=== PATIENT | female | born 1950 | race Caucasian/White ===

== ENCOUNTER 2020-06-16 11:06 | Outpatient (REF) | payer MEDICARE, SELFPAY ==
--- NOTE | 2020-06-16 11:11 | FL_ITS ---
EXAMINATION: BARIUM SWALLOW CLINICAL INFORMATION: Dysphagia. COMPARISON: None TECHNIQUE: Routine upright barium swallow was performed with thick barium, barium coated turkey and barium tablet. Thin barium was performed in prone lying position. FINDINGS: Following oral administration of thick barium, barium coated turkey there is normal propagation of bolus from the oral cavity through the pharynx, esophagus into stomach without any evidence of obstruction, narrowing or stricture. Slightly prominent varicose of splinter and a small Zenker's diverticulum is noted. On placing patient prone and oral administration of thin barium there is good distention of the entire esophagus without any intrinsic defect or extrinsic compression. There is a small hiatal hernia noted. Minimal gastroesophageal reflux. There are postsurgical changes in the epigastric region likely from hiatal hernia repair. IMPRESSION: Small hiatal hernia with mild gastroesophageal reflux. Small Zenker's diverticulum without any food residue. Fluoroscopy time: 2.4 minutes. Dose area product: 13.37. Images: 63.
== END 2020-06-16 11:07 | disposition home or self-care (01) ==
LOC: HO.XRAY 11:06
PROVIDERS: PCP Internal Medicine; Visit Provider Internal Medicine Gastroenterology
DX: R13.14 Dysphagia, pharyngoesophageal phase (principal)
CPT/HCPCS: 74220

== ENCOUNTER → 2020-06-17 11:35 | Outpatient (BNVA) | payer MEDICARE, SELFPAY | PROVIDERS: PCP Internal Medicine; Referring Provider Internal Medicine; Visit Provider Dietitian, Registered | DX: Z76.89 Persons encountering health services in other specified circumstances (principal) ==

== ENCOUNTER → 2020-09-17 11:20 | Outpatient (BNVA) | payer MEDICARE, SELFPAY | PROVIDERS: PCP Internal Medicine; Visit Provider Dietitian, Registered ==

== ENCOUNTER 2021-10-21 14:08 | Outpatient (REF) | payer MEDICARE, SELFPAY ==
[2021-10-21 15:27] LABS: MANUAL DIFF FLAG NO
[2021-10-21 16:04] LABS: Basophils Percent Auto 0.5 % (0-2); Eosinophils Absolute Auto 0.5 X10*3/uL (0.0-0.4); Eosinophils Percent Auto 5.4 % (0-4); Hematocrit 43.5 % (37.0-47.0); Hemoglobin 13.6 g/dl (12.0-16.0); Imm Gran Abs Auto 0.01 X10*3/uL (0.00-0.03); Imm Gran Pct Auto 0.1 % (0.0-0.4); Lymphocytes Absolute Auto 2.3 X10*3/uL (1.2-4.9); Lymphocytes Percent Auto 27.6 % (20-40); Mean Corpuscular HGB Conc 31.3 g/dl (31.0-35.0); Mean Corpuscular Volume 86.3 fL (80.0-98.0); Mean Platelet Volume 11.8 fL (9.4-12.3); Monocytes Absolute Auto 0.7 X10*3/uL (0.1-1.2); Monocytes Percent Auto 8.3 % (2-11); Neutrophils Absolute Auto 4.8 x10*3/uL (2.0-8.3); Neutrophils Percent Auto 58.1 % (45-73); Platelet Count 257 X10*3/uL (160-400); Red Blood Count 5.04 X10*6/uL (4.20-5.50); Red Cell Distribution Width 13.4 % (11.0-16.0); White Blood Count 8.3 X10*3/uL (4.8-10.8)
[2021-10-21 16:10] LABS: Prothrombin Time 11.6 SEC (9.9-13.0)
[2021-10-21 16:28] LABS: Alanine Aminotransferase 23 U/L (0-31); Albumin Level 4.5 g/dL (3.5-5.0); Alkaline Phosphatase 97 U/L (39-117); Anion Gap 13 (12-20); Aspartate Amino Transferase 20 U/L (5-31); Bilirubin Total 0.5 mg/dL (0.0-1.0); Blood Urea Nitrogen 17 mg/dL (9-16); Carbon Dioxide 25 mmol/L (22-29); Chloride 108 mmol/L (96-108); Estimated Glomerular Filt Rate > 60; Glucose Random 75 mg/dL (60-115); Lipase 40 U/L (8-78); Potassium 4.2 mmol/L (3.3-5.1); Sodium 142 mmol/L (135-145); Total Protein 7.3 g/dL (6.5-8.0)
[2021-10-22 14:18] LABS: Transglutaminase IgA <1.0 U/mL
[2021-10-22 14:25] LABS: Immunoglobulin A 198 mg/dL (70-320)
== END 2021-10-21 14:09 | disposition home or self-care (01) ==
LOC: HO.LAB 14:08
PROVIDERS: PCP Internal Medicine; Referring Provider Internal Medicine; Visit Provider Internal Medicine Gastroenterology
DX: R10.10 Upper abdominal pain, unspecified (principal); R14.0 Abdominal distension (gaseous); R13.14 Dysphagia, pharyngoesophageal phase; K21.9 Gastro-esophageal reflux disease without esophagitis; K76.0 Fatty (change of) liver, not elsewhere classified; Z80.0 Family history of malignant neoplasm of digestive organs
CPT/HCPCS: 36415; 80053; 82784; 83690; 85025; 85610; 86364; 99212

== ENCOUNTER 2021-12-29 16:10 | Outpatient (REF) | payer OTHER, SELFPAY ==
--- NOTE | ~2021-12-29 | CT_ITS ---
EXAMINATION: CT ABDOMEN AND PELVIS WITH CONTRAST CLINICAL INFORMATION: Upper abdominal pain. COMPARISON: CT abdomen and pelvis 07/24/2018. TECHNIQUE: Multidetector volumetric images were obtained from the superior aspect of the liver through the pubic symphysis following administration 85 mL of Omnipaque 350 intravenous contrast. Sagittal and coronal reformatted images were obtained on the technologist's workstation. Oral contrast: No This CT examination was performed using dose optimization techniques as appropriate, variously including the following: *Automated exposure control *Adjustment of mA and/or kV according to patient size (this includes techniques or standardized protocols for targeted exams where dose is matched to indication/reason for exam; i.e. extremities or head) *Use of iterative reconstruction technique DLP: 694 mGy-cm FINDINGS: LUNG BASES: There is a 1.6 cm lesion in the right lower lobe anterobasal segment image 3/3 which has increased slightly in size. Previously it measured 9 mm on axial image 1/6. There is a 2.2 cm pleural-based solid lesion right lower lobe on axial image 1/3. Previously it appeared more atelectatic change. The heart size is normal. LIVER, GALLBLADDER, AND BILIARY TREE: The liver is normal in size, shape, and attenuation. No focal hepatic lesion or biliary ductal dilatation is present. The gallbladder is unremarkable with no evidence of radiopaque gallstones, gallbladder wall thickening, or obvious pericholecystic inflammatory changes. PANCREAS: Unremarkable. SPLEEN: Unremarkable. ADRENAL GLANDS: Unremarkable. KIDNEYS AND URETERS: The kidneys are normal in size, shape, and attenuation. No hydronephrosis, hydroureter, or calculi seen. No perinephric stranding. There is a 2.9 cm cyst in lower pole right kidney. There are bilateral extrarenal kidney pelvises. BLADDER: Unremarkable. GASTROINTESTINAL TRACT: There is a small hiatal hernia with postsurgical changes from previous intervention. The stomach is otherwise unremarkable. The small-bowel loops are normal caliber. There is scattered stool and gas seen throughout the colon without distention. Appendix is not seen. There is diffuse colonic diverticulosis most prominent in the sigmoid colon. There is no pericolic fat stranding. ABDOMINAL WALL: No significant hernia is appreciated. LYMPH NODES: Normal. VASCULAR: Unremarkable. PELVIC VISCERA: The uterus is retroverted and appears unremarkable. OSSEOUS STRUCTURES: There is mild ventral spondylosis lower dorsal spine. No lytic process. CT/CT abdomen pelvis w con IMPRESSION: Sigmoid and rest of the colon diverticulosis without diverticulitis. Mild constipation without obstruction. Right renal midpole simple cyst. No major change compared to previous CT abdomen exam 07/23/2018. Fleischner guidelines were followed.
[2021-12-29 16:54] LABS: Blood Urea Nitrogen 24 mg/dL (9-16); Estimated Glomerular Filt Rate 48
[2021-12-29] MEDS: iohexoL 350 MG/ML 100 ML INFUS..BTL IV (19:17)
== END 2021-12-29 16:11 | disposition home or self-care (01) ==
LOC: HO.CT 16:10
PROVIDERS: Radiology Diagnostic Radiology; PCP Internal Medicine; Visit Provider Internal Medicine Gastroenterology
DX: Z01.812 Encounter for preprocedural laboratory examination (principal); R10.10 Upper abdominal pain, unspecified
CPT/HCPCS: 36415; 74177; 82565; 84520; Q9967

== ENCOUNTER → 2022-08-10 11:34 | Outpatient (BNVA) | payer OTHER, SELFPAY | PROVIDERS: PCP Internal Medicine; Referring Provider Internal Medicine; Visit Provider Internal Medicine Gastroenterology | DX: R10.10 Upper abdominal pain, unspecified (principal); R14.0 Abdominal distension (gaseous); R15.9 Full incontinence of feces; R13.14 Dysphagia, pharyngoesophageal phase; K76.0 Fatty (change of) liver, not elsewhere classified; K21.9 Gastro-esophageal reflux disease without esophagitis; K74.60 Unspecified cirrhosis of liver; K59.09 Other constipation; Z86.010 Personal history of colon polyps | CPT/HCPCS: 99212 ==

== ENCOUNTER 2023-05-24 11:32 | Outpatient (AMB) | payer OTHER, SELFPAY ==
--- NOTE | 2023-05-24 11:38 | MHC.OFFVIS ---
Vital Signs 05/24/23 11:50 Height 5 ft 3 in Weight 153 lb BMI 27.1 BP 139/66 Blood Pressure Location Lt brachial Position Sitting Pulse 84 Intake Visit Reasons: 6 month fu Intake Note: Patient follow up for abdominal bloating. Patient cc: abdominal discomfort, medication is helping with GERD, and constipation on and off. Flatbed Press Operator Required: Yes Flatbed Press Operator Name: Stacy [facility] interpeter Accompanied by: Self / Same As Patient Allergies No Known Allergies [No Known Allergies*] Allergy (Verified 02/21/24 10:45) Medication List - Last Reconciled 05/24/23 by Luis Che MD albuterol sulfate 90 mcg/actuation 2 puffs inhalation Q6H PRN atorvastatin 40 mg PO DAILY calcium carbonate-vitamin D3 600 mg-10 mcg (400 unit) 1 tab PO BID cholecalciferol (vitamin D3) 25 mcg PO DAILY dicyclomine 20 mg PO BID 90 days levothyroxine 50 mcg PO DAILY metformin 500 mg PO DAILY omeprazole 40 mg PO DAILY HPI HPI 6 month fu: Details: GI CLINIC VISIT FOR THIS 72-YEAR-OLD GABONESE-SPEAKING FEMALE FOR FOLLOW-UP OF ABDOMINAL? BLOATING AND FECAL INCONTINENCE. Patient is being followed in GI since Jun 2018. ?CHRONIC ILLNESSES:?PMX of thyroid cancer, CKD, sarcoidosis, high? cholesterol, osteopenia, RADHIKA (non compliant CPAP), psoriasis, hypothyroid GERD,? ETOH abuse and hepatic steatosis, calcified lung mass RUL, smoker, neck and? throacic spine pain ?LABS IN [employer]:?from 2018 - reviewed. DECEMBER 2018? stool fat was normal stool for H pylori antigen was negative. ?IMAGING? STUDIES: 05/2020 BARIUM SWALLOW SHOWED: ?Small hiatal hernia with mild gastroesophageal reflux. ? Small Zenker's diverticulum without any food residue. 07/[address] scan showed (reviewed with? Radiology): ?GASTROINTESTINAL TRACT: Multiple surgical clips suggesting? prior hiatal hernia repair in the region of the gastroesophageal? junction. ?No hiatal hernia. This is the appearance of a Yoselin? fundoplication. ?The stomach is otherwise unremarkable. Small bowel is? normal in caliber. No obstruction. Colonic diverticulosis noted. No? diverticulitis. No free air or free fluid. ?ABDOMINAL WALL: No? significant hernia is appreciated. ?ENDOSCOPIC STUDIES:??12/12/17 EGD showed a normal esophagus, nodular gastritis and negative H Pylori? and normal duodenal biopsies. Same day colonoscopy showed decreased anal? sphincter tone and a 3 mm sessile tubular adenoma in the ascending colon ?TODAY'S VISIT [facility] material lister, [place] Notes upper abdominal discomfort at night. Comes suddenly and goes away fast Not associated with eating. Intermittent constipation and denies taking any medication. Pt states she has not been called to schedule colonoscopy appt PAST VISITS: Pt is accompanied by her grand daughter who helped interpret for the patient . Abdominal pain has improved. Abd CT results were reviewed with the patient. Accompanied by her daughter (helped with interpretation) and great grandson. ? ? ? Pt complains of intermittent upper abdomen and periumblical area x 1 month. ?? ? Pain is almost daily and feels like a pressure and can be 8/10 in intensity and lasts? 6-7 min and resolves spontaneously Denies any clear precipitating factors - some times she notes pain after eating, pain can wake her up at night. Pt notes nausea and denies vomiting, fever, chills or sweating. Has lost 3 lbs over the past month. Has been having heartburn - stopped after she had surgery. She has been having intermittent diarrhea for the past month - has 3 or more BMs a day. Denies ongoing fecal incontinence ?Seen by Nessa and was placed on? FODMAP diet. ?Feeling a little better. ?Stopped taking milk? products. ?Gas is less and not as bad as in the past. ?Fecal? incontinence is better and mostly related to passage of gas. ?Stopped? taking Omeprazole since it was not helping. ?Notes intermittent? dysphagia to solid food after she starts eating and has to throw up and is able? to eat after that. ?Denies noticing any weight loss ?PAST? VISITS: ?Tried Gluten Free Diet x 2 weeks (found it to be expensive)? and no change in her symptoms. ?Sucralfate caused an upset? stomach. ?Abdomen is noisey and she finds it embarassing to go? out. ?Has been loosing weight. Had hiatal hernia repair? 08/2016 at [facility] and having GI problems since the surgery ? No? heartburn since the surgery and continuing to take Omeprazole. ? Notes? increased gas and bloating. ? Has abdominal discomfort related to? gas. ? Has tried gas X and several other otc medications without relief? of symptoms. ? Wakes up at night with upper abdominal pain which lasts? for several hours. ? Pain does not make the pain go away. ? Sometimes can have a BM without warning when she is in the rest room to? urinate. ? She is unable to control the gas and avoids public? places. ? No change in appetite. Weight loss from 173 to? 153. ? Patient denies change in bowel habits, black stools or rectal? bleeding ? Denies dysphagia, heartburn, nausea or vomiting, change in? appetite or weight. ? Patient is accompanied by her daughter (who? interpreted for the patient) and 2 year old grandson. ? Denies change? in gas and bloating. ? Still has fecal incontinence when she is trying? to pass the gas. ? Mostly has one BM a day mostly in the am. ? Denies nausea or vomiting, change in appetite or weight. ? Takes? Omeprazole 40 mg 2-3 times a month prn. ? Daughter was wondering if? video or pictures from her fundoplication surgery were available for review -? she was referred to [facility] Medical records [facility] Medical History Type 2 diabetes mellitus without complications Thoracic spine pain Neck pain Hepatic steatosis History of ETOH abuse Mass of upper lobe of right lung Hiatal hernia RADHIKA (obstructive sleep apnea) CKD (chronic kidney disease) HLD (hyperlipidemia) Hypothyroidism Hepatic steatosis GERD (gastroesophageal reflux disease) Abdominal bloating Dysphagia Sarcoidosis Thyroid cancer Surgical History Hx of partial thyroidectomy History of repair of hiatal hernia Hx of colonoscopy Hx of esophagogastroduodenoscopy Social History Household Members: Family Are you a primary chronic care nurse to a significant other at home: Yes (3 year old great-grand child, daughter to help post-op) Do you presently have visiting nurse or other home services: No Alcohol intake: current Alcohol intake frequency: holidays/special occasions only Patient Tobacco Use Status: Former Tobacco user Tobacco use type: Cigarette Review of Systems Const All systems reviewed & are unremarkable except as noted in HPI and below ENT Reports Normal hearing present Neuro Reports Normal hearing present and Denies Abnormal speech present Physical Exam Vital Signs: Last Vital Signs Pulse 84 05/24/23 11:50 BP 139/66 05/24/23 11:50 BMI result Body Mass Index 27.1 Const General: healthy appearing and no acute distress Nutritional Appearance: overweight Orientation/consciousness: patient oriented x3 Limitations: language barrier HEENT Head: Yes normal to inspection Ears: hearing grossly normal bilaterally Mouth: Normal oral and palatal mucosa present Eyes Sclerae: sclerae normal Pupils: Equal, round and reactive pupils present Neck Neck: Yes normal visual inspection Chest Chest palpation & inspection: normal inspection of the chest Resp Effort & Inspection: normal respiratory effort Auscultation: clear to auscultation bilaterally Cardio Palpation: normal PMI Rate: regular rate Rhythm: regular rhythm Heart sounds: S1 normal heart sound present, S2 normal heart sound present and no murmurs GI Palpation (GI): Soft to palpation, nontender and No hepatosplenomegaly present Auscultation: normal bowel sounds Rectal Exam - Female: deferred Skin General skin exam: no rashes or lesions noted Neuro General: patient oriented x3, gait normal and moves all extremities Cranial nerves: Yes Equal, round and reactive pupils present and Yes Normal hearing present Speech: No Abnormal speech present Psych Appearance: grossly normal Mental Status: mental status grossly normal Assessment & Plan Assessment & Plan (1) History of colon polyps: Comment: 12/12/17 EGD showed a normal esophagus, nodular?gastritis and negative H Pylori and normal duodenal biopsies. Same day? colonoscopy showed decreased anal sphincter tone and a 3 mm sessile tubular? adenoma in the ascending colon. Pt is due for a 5 year FU colon in 11/2022 Code(s): Z86.010 - Personal history of colonic polyps Category: Medical (2) Family history of pancreatic cancer: Code(s): Z80.0 - Family history of malignant neoplasm of digestive organs Category: Medical (3) Upper abdominal pain: Code(s): R10.10 - Upper abdominal pain, unspecified Category: Medical (4) Hepatic steatosis: Comment: 2017 normal LFTs Code(s): K76.0 - Fatty (change of) liver, not elsewhere classified Category: Medical (5) GERD (gastroesophageal reflux disease): Code(s): K21.9 - Gastro-esophageal reflux disease without esophagitis Category: Medical (6) Cirrhosis: Code(s): K74.60 - Unspecified cirrhosis of liver Category: Medical (7) Fecal incontinence: Code(s): R15.9 - Full incontinence of feces Category: Medical (8) Abdominal bloating: Code(s): R14.0 - Abdominal distension (gaseous) Category: Medical (9) Dysphagia, pharyngoesophageal phase: Comment: Likely due to esophageal motility disorder, no stricture noted on EGD Code(s): R13.14 - Dysphagia, pharyngoesophageal phase Category: Medical Plan 72 year old Chadian-speaking female with PMX of thyroid cancer, CKD, sarcoidosis, high cholesterol,? osteopenia, RADHIKA (non compliant CPAP), psoriasis, hypothyroid GERD, ETOH abuse? and hepatic steatosis, calcified lung mass RUL, smoker, neck and throacic spine?pain followed in GI for abdominal pain associated with increased gas and bloating since her fundoplication surgery. She is status post fundoplication for GERD and hiatal hernia in 2017 with resolution of heartburn symptoms. No etiology found for her?symptoms. Patient noted partial improvement in symptoms gas and bloating while on a FODMAP diet in the past. Pt has been evaluated at [facility] with EGD, Colonoscopy? and gastric emptying study. 08/31/17 Gastric emptying study showed delayed? liquid material gastric emptying. 10/17/17 High Resolution Anorectal Motility? showed Type 1 dyssynergia on strain maneuver (pt was able to expel the 60 ml? balloon - unclear if she has clinically significant dyssynergia), weak squeeze?and decreased rectal sensation 12/12/17 EGD showed a normal esophagus, nodular?gastritis and negative H Pylori and normal duodenal biopsies. Same day? colonoscopy showed decreased anal sphincter tone and a 3 mm sessile tubular? adenoma in the ascending colon Abdominal CT scan (given positive FH of? pancreatic CA in her brother and 2 nephews) and a history of smoking was? obtained for evaluation and was negative. Past Treatments: [place] of? citrucil and Peptobismol was not helpful 10 day course of Metrondazole for? suspected SIBO without significant improvement in her symptoms. Noted? increased gas with Sucralfate. Patient seen urgently today for intermittent abdominal pain for the past month associated with nausea. Trial of dicyclomine for abdominal pain in the interim. 12/[address] scan showed: Sigmoid and rest of the colon diverticulosis without diverticulitis. ?Mild constipation without obstruction. ?Right renal midpole simple cyst. ?No major change compared to previous CT abdomen exam 07/23/2018. 05/24/23 Pt was advised to schedule an EGD and a colonoscopy for fu of colon polyps. [place] of Miralax three times a week to see if her abdominal pain improves. FU in 3 months Medications: Refilled dicyclomine 20 mg PO BID 180 tabs 1RF 90 days R10.10 - Upper abdominal pain, unspecified Coding Level of Care Code Est Pt Level 4 (20770) Diagnoses History of colon polyps Z86.010 Family history of pancreatic cancer Z80.0 Upper abdominal pain R10.10 Hepatic steatosis K76.0 GERD (gastroesophageal reflux disease) K21.9 Cirrhosis K74.60 Fecal incontinence R15.9 Abdominal bloating R14.0 Dysphagia, pharyngoesophageal phase R13.14 Time Spent (min) 21
[2023-05-24 11:50] VITALS: BP 139/66; PULSE 84; BMI 27.1
== END 2023-05-24 12:10 | disposition home or self-care (01) ==
PROVIDERS: Visit Provider Internal Medicine Gastroenterology
DX: Z86.010 Personal history of colon polyps (principal); Z80.0 Family history of malignant neoplasm of digestive organs; R10.10 Upper abdominal pain, unspecified; K76.0 Fatty (change of) liver, not elsewhere classified; K21.9 Gastro-esophageal reflux disease without esophagitis; K74.60 Unspecified cirrhosis of liver; R15.9 Full incontinence of feces; R14.0 Abdominal distension (gaseous); R13.14 Dysphagia, pharyngoesophageal phase
CPT/HCPCS: 99499

== ENCOUNTER → 2023-05-24 11:32 | Outpatient (BNVA) | payer OTHER, SELFPAY | PROVIDERS: Visit Provider Internal Medicine Gastroenterology ==

== ENCOUNTER 2023-08-17 08:50 | Day surgery (SDC) | payer OTHER, SELFPAY ==
[2023-08-15 15:49] VITALS: BMI 27.1
[2023-08-15 16:40] VITALS: BMI 27.1
--- NOTE | 2023-08-16 12:36 | HO.ANESPROP2 ---
Documented by User: Yamilka Stout NP 08/16/23 12:37 HPI - Anesthesia Eval Consult details Narrative: 73yo F for Upper Endoscopy and Colonoscopy [facility] Active Problems Active Problems: All Active Problems (Updated 08/15/23 @ 15:59 by Jumana Lopez, AMIRAH) History of colon polyps (Acute) Family history of pancreatic cancer (Acute) Upper abdominal pain (Acute) Lung mass (Acute) Hepatic steatosis (Acute) GERD (gastroesophageal reflux disease) (Acute) Hypothyroidism (Acute) Psoriasis (Acute) RADHIKA on CPAP (Acute) High cholesterol (Acute) CKD (chronic kidney disease) (Acute) Cirrhosis (Acute) Sarcoidosis (Acute) Fecal incontinence (Acute) Dysphagia, pharyngoesophageal phase (Acute) Abdominal bloating (Acute) Past Medical History Medical History Type 2 diabetes mellitus without complications Thoracic spine pain Neck pain Hepatic steatosis History of ETOH abuse Mass of upper lobe of right lung Hiatal hernia RADHIKA (obstructive sleep apnea) CKD (chronic kidney disease) HLD (hyperlipidemia) Hypothyroidism Hepatic steatosis GERD (gastroesophageal reflux disease) Abdominal bloating Dysphagia Sarcoidosis Thyroid cancer Surgical History Surgical History Hx of partial thyroidectomy History of repair of hiatal hernia Hx of colonoscopy Hx of esophagogastroduodenoscopy Social History Social History Household Members: Family Are you a primary career manager to a significant other at home: Yes (3 year old great-grand child, daughter to help post-op) Do you presently have visiting nurse or other home services: No Alcohol intake: current Alcohol intake frequency: holidays/special occasions only Patient Tobacco Use Status: Former Tobacco user Quit Date: 02/2023 Tobacco use type: Cigarette Use of substances other than those prescribed or required for medical reasons: No Are you DNR?: No Advance Directives: No Advance Directives Information Provided: Yes Advance Directives on File: No Meds Allergies Allergy/AdvReac Type Severity Reaction Status Date / Time No Known Allergies Allergy Verified 08/17/23 09:00 [No Known Allergies*] Home Medications Medication Instructions Recorded Confirmed Last Taken Type albuterol sulfate 90 mcg/actuation 2 puff inhalation Q6H PRN 10/21/21 08/15/23 Unknown History aerosol inhaler Shortness Of Breath Or Wheezing atorvastatin 40 mg tablet 40 mg PO DAILY 10/21/21 08/15/23 Unknown History calcium carbonate 600 mg-vitamin 1 tab PO BID 10/21/21 08/15/23 Unknown History D3 10 mcg (400 unit) tablet cholecalciferol (vitamin D3) 25 25 mcg PO DAILY 10/21/21 08/15/23 Unknown History mcg (1,000 unit) capsule levothyroxine 50 mcg tablet 50 mcg PO DAILY 10/21/21 08/17/23 08/16/23 History omeprazole 40 mg capsule,delayed 40 mg PO DAILY 10/21/21 08/17/23 08/16/23 History release metformin 500 mg tablet 500 mg PO DAILY 08/10/22 08/15/23 Unknown History Exam Height,Weight and Vital Signs: Height 5 ft 3 in Weight 69.4 kg Assessment and Plan Assessment Anesthesia Assessment: Chart Reviewed Documented by User: Sanjuana Gonzales MD 08/17/23 09:23 [facility] Past Medical History Medical History Type 2 diabetes mellitus without complications Thoracic spine pain Neck pain Hepatic steatosis History of ETOH abuse Mass of upper lobe of right lung Hiatal hernia RADHIKA (obstructive sleep apnea) CKD (chronic kidney disease) HLD (hyperlipidemia) Hypothyroidism Hepatic steatosis GERD (gastroesophageal reflux disease) Abdominal bloating Dysphagia Sarcoidosis Thyroid cancer Family History Family history of problems with anesthesia: No Surgical History Surgical History Hx of partial thyroidectomy History of repair of hiatal hernia Hx of colonoscopy Hx of esophagogastroduodenoscopy History of Problems with Anesthesia: No Social History Social History Household Members: Family Are you a primary career manager to a significant other at home: Yes (3 year old great-grand child, daughter to help post-op) Do you presently have visiting nurse or other home services: No Alcohol intake: current Alcohol intake frequency: holidays/special occasions only Patient Tobacco Use Status: Former Tobacco user Quit Date: 02/2023 Tobacco use type: Cigarette Use of substances other than those prescribed or required for medical reasons: No Are you DNR?: No Advance Directives: No Advance Directives Information Provided: Yes Advance Directives on File: No Meds Allergies Allergy/AdvReac Type Severity Reaction Status Date / Time No Known Allergies Allergy Verified 08/17/23 09:00 [No Known Allergies*] Home Medications Medication Instructions Recorded Confirmed Last Taken Type albuterol sulfate 90 mcg/actuation 2 puff inhalation Q6H PRN 10/21/21 08/15/23 Unknown History aerosol inhaler Shortness Of Breath Or Wheezing atorvastatin 40 mg tablet 40 mg PO DAILY 10/21/21 08/15/23 Unknown History calcium carbonate 600 mg-vitamin 1 tab PO BID 10/21/21 08/15/23 Unknown History D3 10 mcg (400 unit) tablet cholecalciferol (vitamin D3) 25 25 mcg PO DAILY 10/21/21 08/15/23 Unknown History mcg (1,000 unit) capsule levothyroxine 50 mcg tablet 50 mcg PO DAILY 10/21/21 08/17/23 08/16/23 History omeprazole 40 mg capsule,delayed 40 mg PO DAILY 10/21/21 08/17/23 08/16/23 History release metformin 500 mg tablet 500 mg PO DAILY 08/10/22 08/15/23 Unknown History Exam Airway Mallampati Class: II TM Dist: <=3cm Neck ROM: Limited Heart: rrr Lungs: cta Assessment and Plan Assessment Anesthesia Assessment: Anesthesia Plan Discussed Final Anesthetic Review Family History of Problems with Anesthesia: No History of Problems with Anesthesia: No NPO: Yes ASA Class: IV Final Preanesthetic Review: No Changes in Pt Med Stat, Meds/Allgs Chart Reviewed, Consent Obtained/Reviewed and Anes Risks/Benef Reviewed Patient Risk: Intermediate Procedure Risk: Low Anesthetic Plan Anesthetic Plan: MAC: Disposition: Standard PACU
[2023-08-17 09:08] VITALS: BMI 26.1
[2023-08-17 09:15] VITALS: BP 118/63; PULSE 83; RESP 16; TEMP 36; O2SAT 98
[2023-08-17] MEDS: Lactated Ringers 1,000 ML 100 ML IVCONT (09:18)
--- NOTE | 2023-08-17 09:23 | MHC.SHP ---
Pre-Procedural Eval Section A Date of Service: 08/17/23 The patient is an INPATIENT: No The History & Physical has been completed within 30 days and I have reviewed it.: No Section B Chief Complaint: Surveillance of colon polyps, abd pain, dysphagia Relevant Family History (Specify if Yes): No Relevant Social History: Tobacco Use (former smoker) Present Medications: see Short Stay Collaborative assessment Medical History: Significant History (thyroid cancer, CKD, sarcoidosis, high cholesterol, osteopenia, RADHIKA (non compliant CPAP), psoriasis, hypothyroid GERD, ETOH abuse and hepatic steatosis, calcified lung mass RUL,) History of Previous Operations: Relevant previous surgery/procedure and date(s) (History of EGD and colonoscopy, history of hiatal hernia surgery, history of partial thyroidectomy) Allergies: Allergies Allergy/AdvReac Type Severity Reaction Status Date / Time No Known Allergies Allergy Verified 08/17/23 09:00 [No Known Allergies*] Review of Systems Sugical H&P ROS: Negative: Constitution, Cardiovascular and Respiratory and Yes, Specify: Gastrointestinal (abd pain) Exam Surgical H&P Exam: Normal: Heart, Normal: Lungs, Normal: Extremities and Normal: Abdomen Plan Diagnosis/Plan: Change (add EGD for evaluation of abdominal pain) I have reviewed the history and physical and performed a pertinent physical examination on my patient. No changes have occurred unless specified. Time Spent With Patient Time: Total time managing care of this patient today ____ minutes.
[2023-08-17 09:26] LABS: Glucose, Whole Blood 88 mg/dL (60-115)
--- NOTE | 2023-08-17 10:13 | W.PM.OPN ---
Operative Note Operative Note Date of Service: 08/17/23 Narrative: FLEXIBLE TRANSORAL UPPER GASTROINTESTINAL ENDOSCOPY WITH BIOPSIES AND ESOPHAGEAL BALLOON DILATION AND COLONOSCOPY TILL CECUM WITH BIOPSIES AND SNARE POLYPECTOMY Pre-op diagnosis: Colon cancer screening, dysphagia, abdominal pain Post-op diagnosis: Hiatal hernia, Schatzki's ring, gastritis, duodenal nodules, Colon polyp, diverticulosis, hemorrhoids Endoscopist:? Luis Che MD Anesthesia:?MAC UPPER ENDOSCOPY Consent: Indications for the procedure and potential complications of bleeding, perforation, reaction to medications and missed diagnosis were discussed with the patient and informed consent was obtained. Instrument: Olympus GIF H 190 mid size upper endoscope Monitoring: Vital signs and clinical assessment, continuous EKG monitoring, Pulse oximetry, Carbon Dioxide monitoring and blood pressure monitoring were done throughout the procedure. Procedure: The patient was placed in the left lateral decubitis position and pre-procedure medications were administered and a bite block was placed. The endoscope was inserted into the mouth and advanced under direct vision to the third part of duodenum. A careful inspection was made as the upper endoscope was withdrawn including a retroflexed examination of the proximal stomach; Findings and interventions are described below. Findings: Larynx: Normal Esophagus: GE junction at 30 cms, hiatal hernia 30 to 34 cms. A partially obstructing Schatzki's ring at GE junction - dilated with a 20 mm CRE balloon x 60 seconds Biopsies were obtained from the GE junction. No esophagitis or Sneed's. Stomach: Moderate diffuse gastric erythema with nodular appearing gastric mucosa. Biopsies were obtained. Grade 3 flap valve on retroflexed examination of the cardia. Duodenum: A few 5 to 8 mm benign appearing nodules in the bulb - biopsied. Normal descending duodenum - biopsies were obtained from 3rd part of the duodenum to check for celiac sprue Intervention: Biopsies as noted above COLONOSCOPY PROCEDURE NOTE Consent: Indications for the procedure and potential complications of bleeding, perforation, reaction to medications and missed diagnosis were discussed with the patient and informed consent was obtained. Instrument: Olympus PCF H 190 L variable stiffness pediatric colonoscope Monitoring: Vital signs and clinical assessment, intermittent blood pressure monitoring, continuous EKG monitoring, Pulse oximetry and Carbon Dioxide monitoring were done throughout the procedure. Colon withdrawl time was 16 minutes. Procedure: The patient was placed in the left lateral decubitis position and pre-procedure medications were administered. After a digital rectal examination of the ano-rectum, the video colonoscope was inserted into the rectum and advanced through the colon to the cecum. The colonoscope was slowly withdrawn in a retrograde panoramic fashion and the colon mucosa was carefully examined including a retroflexed view of the rectum. Findings and interventions are described below. Procedure Difficulty: : Without difficulty Findings: Terminal Ileum: Distal 7-8 cms was examined and appeared normal Cecum: A 5-6 mm sessile polyp - removed with a cold snare Ascending Colon: Normal Transverse Colon: Normal Descending Colon: Moderate diverticulosis Sigmoid Colon: Moderate diverticulosis Rectum: Normal Ano-rectum: Moderate internal hemorrhoids Colon preparation: Good after some irrigation Impression and Post Procedure Diagnosis: Endoscopy Findings: ESOPHAGUS: GE junction at 30 cms, hiatal hernia 30 to 34 cms. A partially obstructing Schatzki's ring at GE junction - dilated with a 20 mm CRE balloon x 60 seconds Biopsies were obtained from the GE junction. No esophagitis or Sneed's. STOMACH: Moderate diffuse gastric erythema with nodular appearing gastric mucosa. DUODENUM: A few 5 to 8 mm benign appearing nodules in the bulb - biopsied. Normal descending duodenum - biopsies were obtained from 3rd part of the duodenum to check for celiac sprue Colonoscopy Findings: One small polyp removed Random biopsies were obtained from right and left colon to check for microscopic colitis Moderate diverticulosis seen in the left colon Moderate hemorrhoids on retroflexed exam. Plan: Await pathology results Patient has an appointment on 08/30/23 in the GI Clinic with Luis Che M.D. Repeat Colonoscopy interval based on path results - in 5 years if polyps are adenomatous and 10 years if polyps are hyperplastic. Above findings were reviewed with the patient and colon polyps and diverticulosis handouts were given in the discharge area
[2023-08-17 11:25] VITALS: BP 141/81; PULSE 86; RESP 16; TEMP 36.4; O2SAT 98
[2023-08-17 11:45] VITALS: BP 146/86; PULSE 75; RESP 18; TEMP 36.4; O2SAT 99
== END 2023-08-17 12:13 | disposition home or self-care (01) ==
PROVIDERS: PCP Internal Medicine; Visit Provider Internal Medicine Gastroenterology
PROC: (CPT 45385; principal; 2023-08-17 11:10)
DX: Z12.11 Encounter for screening for malignant neoplasm of colon (principal); Z86.010 Personal history of colon polyps; D12.0 Benign neoplasm of cecum; K57.30 Diverticulosis of large intestine without perforation or abscess without bleeding; K64.8 Other hemorrhoids; R15.9 Full incontinence of feces; Z80.0 Family history of malignant neoplasm of digestive organs; R13.14 Dysphagia, pharyngoesophageal phase; K22.2 Esophageal obstruction; K21.9 Gastro-esophageal reflux disease without esophagitis; K29.80 Duodenitis without bleeding; K31.89 Other diseases of stomach and duodenum; K29.50 Unspecified chronic gastritis without bleeding; K76.0 Fatty (change of) liver, not elsewhere classified; K44.9 Diaphragmatic hernia without obstruction or gangrene; K74.60 Unspecified cirrhosis of liver; G47.33 Obstructive sleep apnea (adult) (pediatric); E11.22 Type 2 diabetes mellitus with diabetic chronic kidney disease; N18.9 Chronic kidney disease, unspecified; Z79.84 Long term (current) use of oral hypoglycemic drugs; Z99.89 Dependence on other enabling machines and devices; Z79.899 Other long term (current) drug therapy; Z87.891 Personal history of nicotine dependence
CPT/HCPCS: 45385; 45380; 43249; 43239; 82947; 88305; 88341; 88342; C1726; J2250; J2704

== ENCOUNTER → 2023-08-17 08:50 | Outpatient (BNV) | payer OTHER, SELFPAY | PROVIDERS: PCP Internal Medicine; Visit Provider Internal Medicine Gastroenterology | DX: Z12.11 Encounter for screening for malignant neoplasm of colon (principal); D12.0 Benign neoplasm of cecum; K57.90 Diverticulosis of intestine, part unspecified, without perforation or abscess without bleeding; K64.8 Other hemorrhoids; K22.2 Esophageal obstruction; K29.70 Gastritis, unspecified, without bleeding; K31.7 Polyp of stomach and duodenum | CPT/HCPCS: 43239; 43249; 45380; 45385 ==

== ENCOUNTER 2023-10-04 10:37 | Outpatient (AMB) | payer OTHER, SELFPAY ==
--- NOTE | 2023-10-04 10:46 | A.OFFVIS_ITS ---
Intake Vital Signs 10/04/23 10:48 Height 5 ft 3 in Weight 152 lb BMI 26.9 BP 124/58 L Blood Pressure Location Lt brachial Position Sitting Pulse 67 Intake Visit Reasons: colo results Intake Note: Patient follow up for Abdominal bloating and Colonoscopy and EGD results. Patient cc: acid reflex with burning sensation on and off. Denies any other GI issues but she is concern on her Cirrhosis Dx because she did not know that and she needed an explanation. Scanning Manager Required: Yes Scanning Manager Name: [facility] Interpeter Allergies No Known Allergies [No Known Allergies*] Allergy (Verified 10/04/23 10:44) Medication List - Last Reconciled 10/04/23 by Luis Che MD albuterol sulfate 90 mcg/actuation 2 puffs inhalation Q6H PRN atorvastatin 40 mg PO DAILY calcium carbonate-vitamin D3 600 mg-10 mcg (400 unit) 1 tab PO BID cholecalciferol (vitamin D3) 25 mcg PO DAILY dicyclomine 20 mg PO BID 90 days levothyroxine 50 mcg PO DAILY lisinopril 5 mg PO DAILY melatonin 3 mg PO BEDTIME PRN metformin 500 mg PO DAILY omeprazole 40 mg PO DAILY HPI colo results HPI Details GI CLINIC VISIT FOR THIS 72-YEAR-OLD HEBREW-SPEAKING FEMALE FOR FOLLOW-UP OF ABDOMINAL? BLOATING AND FECAL INCONTINENCE. Patient is being followed in GI since Jun 2018. ?CHRONIC ILLNESSES:?PMX of thyroid cancer, CKD, sarcoidosis, high? cholesterol, osteopenia, RADHIKA (non compliant CPAP), psoriasis, hypothyroid GERD,? ETOH abuse and hepatic steatosis, calcified lung mass RUL, smoker, neck and? throacic spine pain ?LABS IN [place]:?from 2018 - reviewed. DECEMBER 2018? stool fat was normal stool for H pylori antigen was negative. ?IMAGING? STUDIES: 05/2020 BARIUM SWALLOW SHOWED: ?Small hiatal hernia with mild gastroesophageal reflux. ? Small Zenker's diverticulum without any food residue. 07/[address] scan showed (reviewed with? Radiology):?GASTROINTESTINAL TRACT: Multiple surgical clips suggesting? prior hiatal hernia repair in the region of the gastroesophageal? junction. ?No hiatal hernia. This is the appearance of a Yoselin? fundoplication. ?The stomach is otherwise unremarkable. Small bowel is? normal in caliber. No obstruction. Colonic diverticulosis noted. No? diverticulitis. No free air or free fluid. ?ABDOMINAL WALL: No? significant hernia is appreciated. ?ENDOSCOPIC STUDIES:??07/2023 EGD AND COLON SHOWED: ESOPHAGUS: GE junction at 30 cms, hiatal hernia 30 to 34 cms. A partially obstructing Schatzki's ring at GE junction - dilated with a 20 mm CRE balloon x 60 seconds Biopsies were obtained from the GE junction. No esophagitis or Sneed's. STOMACH: Moderate diffuse gastric erythema with nodular appearing gastric mucosa. DUODENUM: A few 5 to 8 mm benign appearing nodules in the bulb - biopsied. Normal descending duodenum - biopsies were obtained from 3rd part of the duodenum to check for celiac sprue Colonoscopy Findings: One small polyp removed Random biopsies were obtained from right and left colon to check for microscopic colitis Moderate diverticulosis seen in the left colon Moderate hemorrhoids on retroflexed exam. Plan: Repeat Colonoscopy interval based on path results - in 5 years if polyps are adenomatous and 10 years if polyps are hyperplastic. 12/12/17 EGD showed a normal esophagus, n odular gastritis and negative H Pylori? and normal duodenal biopsies. Same day colonoscopy showed decreased anal? sphincter tone and a 3 mm sessile tubular adenoma in the ascending colon ?TODAY'S VISIT Patient cc: acid reflex with burning sensation on and off. Denies any other GI issues but she is concern on her Cirrhosis Dx because she did not know that and she needed an explanation. [facility] certified court interpreter, Romel EGD and colon results reviewed with the patient. Notes upper abdominal discomfort at night. Comes suddenly and goes away fast Not associated with eating. Intermittent constipation and denies taking any medication. PAST VISIT: Pt is accompanied by her grand daughter who also helped interpret for the patient . Abdominal pain has improved. Abd CT results were reviewed with the patient. Pt states she has not been called to schedule colonoscopy appt Accompanied by her daughter (helped with interpretation) and infant great grandson. ? ? ? Pt complains of intermittent upper abdomen and periumblical area x 1 month. ?? ? Pain is almost daily and feels like a pressure and can be 8/10 in intensity and lasts? 6-7 min and resolves spontaneously Denies any clear precipitating factors - some times she notes pain after eating, pain can wake her up at night. Pt notes nausea and denies vomiting, fever, chills or sweating. Has lost 3 lbs over the past month. Has been having heartburn - stopped after she had surgery. She has been having intermittent diarrhea for the past month - has 3 or more BMs a day. Denies ongoing fecal incontinence ?Seen by Nessa and was placed on? FODMAP diet. ?Feeling a little better. ?Stopped taking milk? products. ?Gas is less and not as bad as in the past. ?Fecal? incontinence is better and mostly related to passage of gas. ?Stopped? taking Omeprazole since it was not helping. ?Notes intermittent? dysphagia to solid food after she starts eating and has to throw up and is able? to eat after that. ?Denies noticing any weight loss ?PAST? VISITS: ?Tried Gluten Free Diet x 2 weeks (found it to be expensive)? and no change in her symptoms. ?Sucralfate caused an upset? stomach. ?Abdomen is noisey and she finds it embarassing to go? out. ?Has been loosing weight. Had hiatal hernia repair? 08/2016 at [facility] and having GI problems since the surgery ? No? heartburn since the surgery and continuing to take Omeprazole. ? Notes? increased gas and bloating. ? Has abdominal discomfort related to? gas. ? Has tried gas X and several other otc medications without relief? of symptoms. ? Wakes up at night with upper abdominal pain which lasts? for several hours. ? Pain does not make the pain go away. ? Sometimes can have a BM without warning when she is in the rest room to? urinate. ? She is unable to control the gas and avoids public? places. ? No change in appetite. Weight loss from 173 to? 153. ? Patient denies change in bowel habits, black stools or rectal? bleeding ? Denies dysphagia, heartburn, nausea or vomiting, change in? appetite or weight. ? Patient is accompanied by her daughter (who? interpreted for the patient) and 2 year old grandson. ? Denies change? in gas and bloating. ? Still has fecal incontinence when she is trying? to pass the gas. ? Mostly has one BM a day mostly in the am. ? Denies nausea or vomiting, change in appetite or weight. ? Takes? Omeprazole 40 mg 2-3 times a month prn. ? Daughter was wondering if? video or pictures from her fundoplication surgery were available for review -? she was referred to [facility] Medical records [facility] Medical History Type 2 diabetes mellitus without complications Thoracic spine pain Neck pain Hepatic steatosis History of ETOH abuse Mass of upper lobe of right lung Hiatal hernia RADHIKA (obstructive sleep apnea) CKD (chronic kidney disease) HLD (hyperlipidemia) Hypothyroidism Hepatic steatosis GERD (gastroesophageal reflux disease) Abdominal bloating Dysphagia Sarcoidosis Thyroid cancer Surgical History Hx of partial thyroidectomy History of repair of hiatal hernia Hx of colonoscopy Hx of esophagogastroduodenoscopy Social History Household Members: Family Are you a primary pet care associate to a significant other at home: Yes (3 year old great-grand child, daughter to help post-op) Do you presently have visiting nurse or other home services: No Alcohol intake: current Alcohol intake frequency: holidays/special occasions only Patient Tobacco Use Status: Former Tobacco user Quit Date: 02/2023 Tobacco use type: Cigarette Review of Systems Const Denies fever(s), Denies headache(s) and Denies weight loss Eyes Denies eye discharge and Denies irritation ENT Reports Normal hearing present, Denies dysphagia, Denies dizziness, Denies headache(s) and Reports hoarseness Card Denies chest pain, Denies leg edema and Denies dyspnea on exertion Resp Denies cough, Denies dyspnea on exertion and Denies wheezing GI Reports abdominal pain, Denies change in bowel habits, Denies dysphagia and Reports heartburn Denies difficulty voiding and Denies dysuria Musc Denies back pain, Denies arthralgias and Reports other (arthritis) Skin/Breast Denies pruritus, Denies rash and Denies jaundice Neuro Reports Normal hearing present, Denies Abnormal speech present, Denies dizziness, Denies headache(s) and Denies seizure-like activity Psych Denies anxiety, Denies depression and Denies panic attacks Endo Denies cold intolerance, Denies flushing and Denies heat intolerance Ayad/Lymph Denies easy bleeding and Denies easy bruising Aller/Immun Denies wheezing Physical Exam Vital Signs: Last Vital Signs Pulse 67 10/04/23 10:48 BP 124/58 L 10/04/23 10:48 BMI result Body Mass Index 26.9 Const General: healthy appearing and no acute distress Nutritional Appearance: overweight Orientation/consciousness: patient oriented x3 Limitations: language barrier HEENT Head: Yes normal to inspection Ears: hearing grossly normal bilaterally Mouth: Normal oral and palatal mucosa present Eyes Sclerae: sclerae normal Pupils: Equal, round and reactive pupils present Neck Neck: Yes normal visual inspection Chest Chest palpation & inspection: normal inspection of the chest Resp Effort & Inspection: normal respiratory effort Auscultation: clear to auscultation bilaterally Cardio Palpation: normal PMI Rate: regular rate Rhythm: regular rhythm Heart sounds: S1 normal heart sound present, S2 normal heart sound present and no murmurs GI Palpation (GI): Soft to palpation, nontender and No hepatosplenomegaly present Auscultation: normal bowel sounds Rectal Exam - Female: deferred Skin General skin exam: no rashes or lesions noted Neuro General: patient oriented x3, gait normal and moves all extremities Cranial nerves: Yes Equal, round and reactive pupils present and Yes Normal hearing present Speech: No Abnormal speech present Psych Appearance: grossly normal Mental Status: mental status grossly normal Assessment & Plan Assessment & Plan (1) History of colon polyps: Comment: 12/12/17 EGD showed a normal esophagus, nodular?gastritis and negative H Pylori and normal duodenal biopsies. Same day? colonoscopy showed decreased anal sphincter tone and a 3 mm sessile tubular? adenoma in the ascending colon. Pt is due for a 5 year FU colon in 11/2022 Code(s): Z86.010 - Personal history of colonic polyps (2) Upper abdominal pain: Code(s): R10.10 - Upper abdominal pain, unspecified (3) Hepatic steatosis: Comment: 2017 normal LFTs Code(s): K76.0 - Fatty (change of) liver, not elsewhere classified (4) GERD (gastroesophageal reflux disease): Code(s): K21.9 - Gastro-esophageal reflux disease without esophagitis (5) Cirrhosis: Code(s): K74.60 - Unspecified cirrhosis of liver (6) Dysphagia, pharyngoesophageal phase: Comment: Likely due to esophageal motility disorder, no stricture noted on EGD Code(s): R13.14 - Dysphagia, pharyngoesophageal phase (7) Abdominal bloating: Code(s): R14.0 - Abdominal distension (gaseous) (8) Fecal incontinence: Code(s): R15.9 - Full incontinence of feces Plan 73 year old Green[place]ic-speaking female with PMX of thyroid cancer, CKD, sarcoidosis, high cholesterol,? osteopenia, RADHIKA (non compliant CPAP), psoriasis, hypothyroid GERD, ETOH abuse? and hepatic steatosis, calcified lung mass RUL, smoker, neck and throacic spine?pain followed in GI for abdominal pain associated with increased gas and bloating since her fundoplication surgery. She is status post fundoplication for GERD and hiatal hernia in 2017 with resolution of heartburn symptoms. No etiology found for her?symptoms. Patient noted partial improvement in symptoms gas and bloating while on a FODMAP diet in the past. Pt has been evaluated at [facility] with EGD, Colonoscopy? and gastric emptying study. 08/31/17 Gastric emptying study showed delayed? liquid material gastric emptying. 10/17/17 High Resolution Anorectal Motility? showed Type 1 dyssynergia on strain maneuver (pt was able to expel the 60 ml? balloon - unclear if she has clinically significant dyssynergia), weak squeeze?and decreased rectal sensation 12/12/17 EGD showed a normal esophagus, nodular?gastritis and negative H Pylori and normal duodenal biopsies. Same day? colonoscopy showed decreased anal sphincter tone and a 3 mm sessile tubular? adenoma in the ascending colon Abdominal CT scan (given positive FH of? pancreatic CA in her brother and 2 nephews) and a history of smoking was? obtained for evaluation and was negative. Past Treatments: [place] of? citrucil and Peptobismol was not helpful 10 day course of Metrondazole for? suspected SIBO without significant improvement in her symptoms. Noted? increased gas with Sucralfate. Patient seen urgently today for intermittent abdominal pain for the past month associated with nausea. Trial of dicyclomine for abdominal pain in the interim. 12/[address] scan showed: Sigmoid and rest of the colon diverticulosis without diverticulitis. ?Mild constipation without obstruction. ?Right renal midpole simple cyst. ?No major change compared to previous CT abdomen exam 07/23/2018. [place] of Miralax three times a week to see if her abdominal pain improves. 10/04/23 EGD and colon results reviewed with the patient. Notes upper abdominal discomfort at night. Comes suddenly and goes away fast Not associated with eating. Intermittent constipation and denies taking any medication. Pt had questions re dx of cirrhosis in her problem list She was advised labs, abd US with elastography for further evaluation FU in 4 months Orders: Orders US abdomen gonzales w elastography 10/04/23 K74.60 - Unspecified cirrhosis of liver Complete Blood Count Auto Diff 10/04/23 K74.60 - Unspecified cirrhosis of liver Liver Panel 10/04/23 K74.60 - Unspecified cirrhosis of liver Liver Fibrosis Pnl 10/04/23 K74.60 - Unspecified cirrhosis of liver Vitamin B12 and Folate 10/04/23 K21.9 - Gastro-esophageal reflux disease without esophagitis Prothrombin Time INR 10/04/23 K74.60 - Unspecified cirrhosis of liver Vitamin D 25-OH Total 10/04/23 K21.9 - Gastro-esophageal reflux disease without esophagitis, R14.0 - Abdominal distension (gaseous) Coding Level of Care Code Est Pt Level 4 (00000) Diagnoses History of colon polyps Z86.010 Upper abdominal pain R10.10 Hepatic steatosis K76.0 GERD (gastroesophageal reflux disease) K21.9 Cirrhosis K74.60 Dysphagia, pharyngoesophageal phase R13.14 Abdominal bloating R14.0 Fecal incontinence R15.9 Time Spent (min) 22
[2023-10-04 10:48] VITALS: BP 124/58; PULSE 67; BMI 26.9
== END 2023-10-04 11:17 | disposition home or self-care (01) ==
PROVIDERS: PCP Internal Medicine; Visit Provider Internal Medicine Gastroenterology
DX: D12.0 Benign neoplasm of cecum (principal); K21.9 Gastro-esophageal reflux disease without esophagitis; K74.60 Unspecified cirrhosis of liver; R13.14 Dysphagia, pharyngoesophageal phase; R15.9 Full incontinence of feces
CPT/HCPCS: 99214

== ENCOUNTER 2023-10-04 10:37 | Outpatient (REF) | payer OTHER, SELFPAY ==
[2023-10-04 11:46] LABS: MANUAL DIFF FLAG NO
[2023-10-04 12:03] LABS: INTERNATIONAL NORM RATIO 0.9 (0.9-1.1); Prothrombin Time 11.4 SEC (11.1-13.3)
[2023-10-04 12:15] LABS: Basophils Absolute Auto 0.1 X10*3/uL (0.0-0.2); Basophils Percent Auto 0.7 % (0-2); Eosinophils Absolute Auto 0.5 X10*3/uL (0.0-0.4); Eosinophils Percent Auto 7.3 % (0-4); Hematocrit 40.2 % (37.0-47.0); Hemoglobin 12.6 g/dl (12.0-16.0); Imm Gran Abs Auto 0.01 X10*3/uL (0.00-0.03); Imm Gran Pct Auto 0.1 % (0.0-0.4); Lymphocytes Absolute Auto 2.2 X10*3/uL (1.2-4.9); Lymphocytes Percent Auto 30.7 % (20-40); Mean Corpuscular HGB Conc 31.3 g/dl (31.0-35.0); Mean Corpuscular Hemoglobin 26.8 pg (27.0-33.0); Mean Corpuscular Volume 85.5 fL (80.0-98.0); Mean Platelet Volume 11.8 fL (9.4-12.3); Monocytes Absolute Auto 0.7 X10*3/uL (0.1-1.2); Monocytes Percent Auto 10.4 % (2-11); Neutrophils Absolute Auto 3.6 x10*3/uL (2.0-8.3); Neutrophils Percent Auto 50.8 % (45-73); Platelet Count 265 X10*3/uL (160-400); Red Cell Distribution Width 14.3 % (11.0-16.0); White Blood Count 7.1 X10*3/uL (4.8-10.8)
[2023-10-04 12:46] LABS: Alanine Aminotransferase 23 U/L (0-31); Albumin Level 4.3 g/dL (3.5-5.0); Alkaline Phosphatase 98 U/L (39-117); Aspartate Amino Transferase 18 U/L (5-31); Bilirubin Direct 0.2 mg/dL (0.0-0.5); Bilirubin Total 0.5 mg/dL (0.0-1.0); Total Protein 7.3 g/dL (6.5-8.0)
[2023-10-04 12:52] LABS: Vitamin D 25-OH Total 44.5 ng/mL (>30)
[2023-10-04 12:55] LABS: Vitamin B12 455 pg/mL (200-900)
[2023-10-11 16:23] LABS: FIB-ALT 19 U/L (6-29); FIB-Alpha-2-Macroglobulin 182 mg/dL (106-279); FIB-Apolipoprotein A1 191 mg/dL (101-198); FIB-GGT 38 U/L (3-65); FIB-Haptoglobin 95 mg/dL (43-212); FIB-Total Bilirubin 0.4 mg/dL (0.2-1.2); Liver Fibrosis Score 0.19; Liver Fibrosis Stage F0; Nec Inflam Act Grade A0; Nec Inflam Act Score 0.06
== END 2023-10-04 10:38 | disposition home or self-care (01) ==
LOC: HO.LAB 10:37
PROVIDERS: PCP Internal Medicine; Visit Provider Internal Medicine Gastroenterology
DX: R10.10 Upper abdominal pain, unspecified (principal); K76.0 Fatty (change of) liver, not elsewhere classified; K21.9 Gastro-esophageal reflux disease without esophagitis; R13.14 Dysphagia, pharyngoesophageal phase; R14.0 Abdominal distension (gaseous); R15.9 Full incontinence of feces; Z86.010 Personal history of colon polyps
CPT/HCPCS: 36415; 80076; 81596; 82306; 82607; 82746; 85025; 85610; 99212

== ENCOUNTER 2023-11-15 10:16 | Outpatient (REF) | payer OTHER, SELFPAY ==
--- NOTE | ~2023-11-15 | US_ITS ---
EXAMINATION: US ABDOMEN LIMITED WITH LIVER ELASTOGRAPHY CLINICAL INFORMATION: Liver cirrhosis. COMPARISON: Abdomen CT from 12/29/2021. TECHNIQUE: Real-time imaging of the abdominal viscera. Noninvasive ultrasound liver fibrosis assessment is performed using Barbi ElastPQ point quantification shear wave elastography (2D-SWE) with a C5-2 MHz transducer. Multiple elastography samples are obtained. FINDINGS: PANCREAS: Normal. The visualized pancreatic head and body are normal in appearance. The remainder of the pancreas is obscured from visualization by the overlying bowel gas. LIVER: Normal. The liver demonstrates normal size, contour and echogenicity. No focal lesion or intrahepatic biliary duct dilatation. The right lobe measures 13 cm in length. The left lobe measures 7.8 cm in length. Portal flow is normal. Shear wave liver elastography median stiffness is 1.07 m/s (reference: normal median stiffness is 1.3 m/s or less). IQR/median stiffness to assess sampling precision is 0.18 (reference: good quality data set is IQR/median stiffness of 0.15 or less). GALLBLADDER: A few gallstones are detected. The gallbladder is physiologically distended without evidence of sludge, polyps, wall thickening or pericholecystic fluid. COMMON BILE DUCT: Normal in caliber measuring 0.4 cm in diameter. RIGHT KIDNEY: No hydronephrosis. No renal calculi or focal parenchymal lesions. The kidney measures 9.7 cm in maximum dimension. A 2.9 cm cyst of the lower pole has a thin septation (Bosniak category 2 cyst). No renal imaging follow-up is recommended. FREE FLUID: None. US/US abdomen gonzales w elastography IMPRESSION: * The liver parenchyma is sonographically normal. No evidence of cirrhotic morphology, steatosis or mass. * Shear wave liver elastography reveals a median stiffness of 1.07 m/s (reference: normal median stiffness is 1.3 m/s or less). High probability of being normal. However, note that there is statistic variability of the sampling data which can decrease accuracy. * Cholelithiasis. REFERENCE: Society of Radiologists in Ultrasound Liver Stiffness Thresholds (2020): LIVER STIFFNESS THRESHOLDS: *Liver Stiffness equal or less than 1.3 m/s: High probability of being normal. *Liver Stiffness less than 1.7 m/s: In the absence of other known clinical signs, rules out compensated advanced chronic liver disease. *Liver Stiffness 1.7-2.1 m/s: Suggestive of compensated advanced chronic liver disease but need further test for confirmation. *Liver Stiffness over 2.1 m/s: Rules in compensated advanced chronic liver disease. *Liver Stiffness over 2.4 m/s: Suggestive of clinically significant portal hypertension. QUALITY OF DATA SET: *IQR/Median value equal or less than 0.15 implies a quality data set. *IQR/Median value over 0.15 implies a poor quality data set. OTHER CONSIDERATIONS: The stage of liver fibrosis may be overestimated in the setting of acute hepatitis, liver inflammation, elevated liver function tests, hepatic vascular congestion, obstructive cholestasis, non-fasting state, and infiltrative diseases such as amyloidosis and lymphoma. In some patients with NAFLD, the liver stiffness thresholds for compensated advanced chronic liver disease may be lower. In causes other than viral hepatitis and NAFLD, liver stiffness thresholds are not well established.
== END 2023-11-15 10:17 | disposition home or self-care (01) ==
LOC: HO.US 10:16
PROVIDERS: PCP Internal Medicine; Visit Provider Internal Medicine Gastroenterology
DX: K74.60 Unspecified cirrhosis of liver (principal)
CPT/HCPCS: 76705; 76981

== ENCOUNTER 2024-02-21 10:44 | Outpatient (AMB) | payer OTHER, SELFPAY ==
--- NOTE | 2024-02-21 10:45 | MHC.OFFVIS ---
Vital Signs 02/21/24 10:46 Height 5 ft 3 in Weight 153 lb BMI 27.1 BP 118/58 L Blood Pressure Location Lt brachial Position Sitting Pulse 63 Intake Visit Reasons: 4 month follow up Intake Note: Patient follow up for abdominal bloating and US/Lab results. Patient cc: acid reflex with burning sensation, denies any other GI issues. Travel Counselor Required: Yes Accompanied by: Self / Same As Patient Allergies No Known Allergies [No Known Allergies*] Allergy (Verified 02/21/24 10:45) Medication List - Last Reconciled 02/21/24 by Luis Che MD albuterol sulfate 90 mcg/actuation 2 puffs inhalation Q6H PRN atorvastatin 40 mg PO DAILY calcium carbonate-vitamin D3 600 mg-10 mcg (400 unit) 1 tab PO BID cholecalciferol (vitamin D3) 25 mcg PO DAILY dicyclomine 20 mg PO BID 90 days levothyroxine 50 mcg PO DAILY lisinopril 5 mg PO DAILY melatonin 3 mg PO BEDTIME PRN metformin 500 mg PO DAILY omeprazole 40 mg PO DAILY HPI HPI 4 month follow up: Details: GI CLINIC VISIT FOR THIS 73-YEAR-OLD UKRA[place]IAN-SPEAKING FEMALE FOR FOLLOW-UP OF ABDOMINAL? BLOATING AND FECAL INCONTINENCE. Patient is being followed in GI since Jun 2018. CHRONIC ILLNESSES:?PMX of thyroid cancer, CKD, sarcoidosis, high? cholesterol, osteopenia, RADHIKA (non compliant CPAP), psoriasis, hypothyroid GERD,? ETOH abuse and hepatic steatosis, calcified lung mass RUL, smoker, neck and? throacic spine pain ? LABS IN [facility]:?from 2018 - reviewed. DECEMBER 2018? stool fat was normal stool for H pylori antigen was negative. IMAGING? STUDIES: 11/15/23 ABD US SHOWED: The liver parenchyma is sonographically normal. No evidence of cirrhotic morphology, steatosis or mass. * Shear wave liver elastography reveals a median stiffness of 1.07 m/s (reference: normal median stiffness is 1.3 m/s or less). High probability of being normal. However, note that there is statistic variability of the sampling data which can decrease accuracy. * Cholelithiasis. 05/2020 BARIUM SWALLOW SHOWED: ?Small hiatal hernia with mild gastroesophageal reflux. ? Small Zenker's diverticulum without any food residue. 07/[address] scan showed (reviewed with? Radiology):? GASTROINTESTINAL TRACT: Multiple surgical clips suggesting? prior hiatal hernia repair in the region of the gastroesophageal? junction.? No hiatal hernia. This is the appearance of a Yoselin? fundoplication. The stomach is otherwise unremarkable. Small bowel is? normal in caliber. No obstruction. Colonic diverticulosis noted. No? diverticulitis. No free air or free fluid. ABDOMINAL WALL: No? significant hernia is appreciated. ENDOSCOPIC STUDIES:??07/2023 EGD AND COLON SHOWED: ESOPHAGUS: GE junction at 30 cms, hiatal hernia 30 to 34 cms. A partially obstructing Schatzki's ring at GE junction - dilated with a 20 mm CRE balloon x 60 seconds Biopsies were obtained from the GE junction. No esophagitis or Sneed's. STOMACH: Moderate diffuse gastric erythema with nodular appearing gastric mucosa. DUODENUM: A few 5 to 8 mm benign appearing nodules in the bulb - biopsied. Normal descending duodenum - biopsies were obtained from 3rd part of the duodenum to check for celiac sprue Colonoscopy Findings: One small polyp removed Random biopsies were obtained from right and left colon to check for microscopic colitis Moderate diverticulosis seen in the left colon Moderate hemorrhoids on retroflexed exam. Plan: Repeat Colonoscopy interval based on path results - in 5 years if polyps are adenomatous and 10 years if polyps are hyperplastic. 12/12/17 EGD showed a normal esophagus, nodular gastritis and negative H Pylori? and normal duodenal biopsies. Same day colonoscopy showed decreased anal? sphincter tone and a 3 mm sessile tubular adenoma in the ascending colon ?TODAY'S VISIT Patient follow up for abdominal bloating and US/Lab results. Patient cc: acid reflex with burning sensation, denies any other GI issues. 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 Notes upper abdominal discomfort at night. Comes suddenly and goes away fast Not associated with eating. Intermittent constipation and denies taking any medication. Prescribed aspirin after she was hospitalized at [facility] with temporary loss of vision followed by double vision. (? due to a TIA) PAST VISIT: EGD and colon results reviewed with the patient. Pt is accompanied by her grand daughter who also helped interpret for the patient . Abdominal pain has improved. Abd CT results were reviewed with the patient. Pt states she has not been called to schedule colonoscopy appt Accompanied by her daughter (helped with interpretation) and great grandson. ? ? ? Pt complains of intermittent upper abdomen and periumblical area x 1 month. ?? ? Pain is almost daily and feels like a pressure and can be 8/10 in intensity and lasts? 6-7 min and resolves spontaneously Denies any clear precipitating factors - some times she notes pain after eating, pain can wake her up at night. Pt notes nausea and denies vomiting, fever, chills or sweating. Has lost 3 lbs over the past month. Has been having heartburn - stopped after she had surgery. She has been having intermittent diarrhea for the past month - has 3 or more BMs a day. Denies ongoing fecal incontinence ?Seen by Nessa and was placed on? FODMAP diet. ?Feeling a little better. ?Stopped taking milk? products. ?Gas is less and not as bad as in the past. ?Fecal? incontinence is better and mostly related to passage of gas. ?Stopped? taking Omeprazole since it was not helping. ?Notes intermittent? dysphagia to solid food after she starts eating and has to throw up and is able? to eat after that. ?Denies noticing any weight loss ?PAST? VISITS: ?Tried Gluten Free Diet x 2 weeks (found it to be expensive)? and no change in her symptoms. ?Sucralfate caused an upset? stomach. ?Abdomen is noisey and she finds it embarassing to go? out. ?Has been loosing weight. Had hiatal hernia repair? 08/2016 at [facility] [place] and having GI problems since the surgery ? No? heartburn since the surgery and continuing to take Omeprazole. ? Notes? increased gas and bloating. ? Has abdominal discomfort related to? gas. ? Has tried gas X and several other otc medications without relief? of symptoms. ? Wakes up at night with upper abdominal pain which lasts? for several hours. ? Pain does not make the pain go away. ? Sometimes can have a BM without warning when she is in the rest room to? urinate. ? She is unable to control the gas and avoids public? places. ? No change in appetite. Weight loss from 173 to? 153. ? Patient denies change in bowel habits, black stools or rectal? bleeding ? Denies dysphagia, heartburn, nausea or vomiting, change in? appetite or weight. ? Patient is accompanied by her daughter (who? interpreted for the patient) and 2 year old grandson. ? Denies change? in gas and bloating. ? Still has fecal incontinence when she is trying? to pass the gas. ? Mostly has one BM a day mostly in the am. ? Denies nausea or vomiting, change in appetite or weight. ? Takes? Omeprazole 40 mg 2-3 times a month prn. ? Daughter was wondering if? video or pictures from her fundoplication surgery were available for review -? she was referred to [facility] Medical records COUNT INCLUDES THE [facility] Medical History Type 2 diabetes mellitus without complications Thoracic spine pain Neck pain Hepatic steatosis History of ETOH abuse Mass of upper lobe of right lung Hiatal hernia RADHIKA (obstructive sleep apnea) CKD (chronic kidney disease) HLD (hyperlipidemia) Hypothyroidism Hepatic steatosis GERD (gastroesophageal reflux disease) Abdominal bloating Dysphagia Sarcoidosis Thyroid cancer Surgical History Hx of partial thyroidectomy History of repair of hiatal hernia Hx of colonoscopy Hx of esophagogastroduodenoscopy Social History Household Members: Family Are you a primary animal care giver to a significant other at home: Yes (3 year old great-grand child, daughter to help post-op) Do you presently have visiting nurse or other home services: No Alcohol intake: current Alcohol intake frequency: holidays/special occasions only Patient Tobacco Use Status: Former Tobacco user Tobacco use type: Cigarette Review of Systems Const Denies fever(s), Denies headache(s) and Denies weight loss Eyes Denies eye discharge and Denies irritation ENT Reports Normal hearing present, Denies dysphagia, Denies dizziness, Denies headache(s) and Reports hoarseness Card Denies chest pain, Denies leg edema and Denies dyspnea on exertion Resp Denies cough, Denies dyspnea on exertion and Denies wheezing GI Reports abdominal pain, Denies change in bowel habits, Denies dysphagia and Reports heartburn Denies difficulty voiding and Denies dysuria Musc Denies back pain, Denies arthralgias and Reports other (arthritis) Skin/Breast Denies pruritus, Denies rash and Denies jaundice Neuro Reports Normal hearing present, Denies Abnormal speech present, Denies dizziness, Denies headache(s) and Denies seizure-like activity Psych Denies anxiety, Denies depression and Denies panic attacks Endo Denies cold intolerance, Denies flushing and Denies heat intolerance Ayad/Lymph Denies easy bleeding and Denies easy bruising Aller/Immun Denies wheezing Physical Exam Vital Signs: Last Vital Signs Pulse 63 02/21/24 10:46 BP 118/58 L 02/21/24 10:46 BMI result Body Mass Index 27.1 Const General: healthy appearing and no acute distress Nutritional Appearance: overweight Orientation/consciousness: patient oriented x3 Limitations: language barrier HEENT Head: Yes normal to inspection Ears: hearing grossly normal bilaterally Mouth: Normal oral and palatal mucosa present Eyes Sclerae: sclerae normal Pupils: Equal, round and reactive pupils present Neck Neck: Yes normal visual inspection Chest Chest palpation & inspection: normal inspection of the chest Resp Effort & Inspection: normal respiratory effort Auscultation: clear to auscultation bilaterally Cardio Palpation: normal PMI Rate: regular rate Rhythm: regular rhythm Heart sounds: S1 normal heart sound present, S2 normal heart sound present and no murmurs GI Palpation (GI): Soft to palpation, nontender and No hepatosplenomegaly present Auscultation: normal bowel sounds Rectal Exam - Female: deferred Skin General skin exam: no rashes or lesions noted Neuro General: patient oriented x3, gait normal and moves all extremities Cranial nerves: Yes Equal, round and reactive pupils present and Yes Normal hearing present Speech: No Abnormal speech present Psych Appearance: grossly normal Mental Status: mental status grossly normal Assessment & Plan Assessment & Plan (1) Abdominal bloating: Code(s): R14.0 - Abdominal distension (gaseous) Category: Medical (2) Dysphagia, pharyngoesophageal phase: Comment: Likely due to esophageal motility disorder, no stricture noted on EGD Code(s): R13.14 - Dysphagia, pharyngoesophageal phase Category: Medical (3) Fecal incontinence: Code(s): R15.9 - Full incontinence of feces Category: Medical (4) Cirrhosis: Code(s): K74.60 - Unspecified cirrhosis of liver Category: Medical (5) GERD (gastroesophageal reflux disease): Code(s): K21.9 - Gastro-esophageal reflux disease without esophagitis Category: Medical (6) Hepatic steatosis: Comment: 2017 normal LFTs Code(s): K76.0 - Fatty (change of) liver, not elsewhere classified Category: Medical (7) Upper abdominal pain: Code(s): R10.10 - Upper abdominal pain, unspecified Category: Medical (8) History of colon polyps: Comment: 12/12/17 EGD showed a normal esophagus, nodular?gastritis and negative H Pylori and normal duodenal biopsies. Same day? colonoscopy showed decreased anal sphincter tone and a 3 mm sessile tubular? adenoma in the ascending colon. Pt is due for a 5 year FU colon in 11/2022 Code(s): Z86.010 - Personal history of colonic polyps Category: Medical Plan 73 year old [place]-speaking female with PMX of thyroid cancer, CKD, sarcoidosis, high cholesterol,? osteopenia, RADHIKA (non compliant CPAP), psoriasis, hypothyroid GERD, ETOH abuse? and hepatic steatosis, calcified lung mass RUL, smoker, neck and throacic spine?pain followed in GI for abdominal pain associated with increased gas and bloating since her fundoplication surgery. She is status post fundoplication for GERD and hiatal hernia in 2017 with resolution of heartburn symptoms. No etiology found for her?symptoms. Patient noted partial improvement in symptoms gas and bloating while on a FODMAP diet in the past. Pt has been evaluated at [facility] with EGD, Colonoscopy? and gastric emptying study. 08/31/17 Gastric emptying study showed delayed? liquid material gastric emptying. 10/17/17 High Resolution Anorectal Motility? showed Type 1 dyssynergia on strain maneuver (pt was able to expel the 60 ml? balloon - unclear if she has clinically significant dyssynergia), weak squeeze?and decreased rectal sensation 12/12/17 EGD showed a normal esophagus, nodular?gastritis and negative H Pylori and normal duodenal biopsies. Same day? colonoscopy showed decreased anal sphincter tone and a 3 mm sessile tubular? adenoma in the ascending colon Abdominal CT scan (given positive FH of? pancreatic CA in her brother and 2 nephews) and a history of smoking was? obtained for evaluation and was negative. Past Treatments: [place] of? citrucil and Peptobismol was not helpful 10 day course of Metrondazole for? suspected SIBO without significant improvement in her symptoms. Noted? increased gas with Sucralfate. Patient seen urgently today for intermittent abdominal pain for the past month associated with nausea. Trial of dicyclomine for abdominal pain in the interim. 12/[address] scan showed: Sigmoid and rest of the colon diverticulosis without diverticulitis. ?Mild constipation without obstruction. ?Right renal midpole simple cyst. ?No major change compared to previous CT abdomen exam 07/23/2018. [place] of Miralax three times a week to see if her abdominal pain improves. 10/04/23 EGD and colon results reviewed with the patient. Notes upper abdominal discomfort at night. Comes suddenly and goes away fast Not associated with eating. Intermittent constipation and denies taking any medication. Pt had questions re dx of cirrhosis in her problem list She was advised labs, abd US with elastography for further evaluation Liver fibrosis score 0.19 and Fibrosis stage F0 No cirrhosis noted on US with Elastography 02/21/24 Notes upper abdominal discomfort at night. Comes suddenly and goes away fast Not associated with eating. Intermittent constipation and denies taking any medication. Prescribed aspirin after she was hospitalized at [facility] with temporary loss of vision followed by double vision. (? due to a TIA) FU in 6 months Coding Level of Care Code Est Pt Level 4 (91572) Diagnoses Abdominal bloating R14.0 Dysphagia, pharyngoesophageal phase R13.14 Fecal incontinence R15.9 Cirrhosis K74.60 GERD (gastroesophageal reflux disease) K21.9 Hepatic steatosis K76.0 Upper abdominal pain R10.10 History of colon polyps Z86.010 Time Spent (min) 20
[2024-02-21 10:46] VITALS: BP 118/58; PULSE 63; BMI 27.1
== END 2024-02-21 11:17 | disposition home or self-care (01) ==
PROVIDERS: PCP Internal Medicine; Visit Provider Internal Medicine Gastroenterology
DX: R14.0 Abdominal distension (gaseous) (principal); R13.14 Dysphagia, pharyngoesophageal phase; R15.9 Full incontinence of feces; K74.60 Unspecified cirrhosis of liver; K21.9 Gastro-esophageal reflux disease without esophagitis; K76.0 Fatty (change of) liver, not elsewhere classified; R10.10 Upper abdominal pain, unspecified; Z86.010 Personal history of colon polyps
CPT/HCPCS: 99214

== ENCOUNTER → 2024-02-21 10:44 | Outpatient (BNVA) | payer OTHER, SELFPAY | PROVIDERS: PCP Internal Medicine; Visit Provider Internal Medicine Gastroenterology | DX: R14.0 Abdominal distension (gaseous) (principal); R10.10 Upper abdominal pain, unspecified; R13.14 Dysphagia, pharyngoesophageal phase; R15.9 Full incontinence of feces; K74.60 Unspecified cirrhosis of liver; K21.9 Gastro-esophageal reflux disease without esophagitis; K76.0 Fatty (change of) liver, not elsewhere classified; Z86.010 Personal history of colon polyps | CPT/HCPCS: 99212 ==

== ENCOUNTER 2025-02-05 11:12 | Outpatient (AMB) | payer OTHER, SELFPAY ==
--- NOTE | 2025-02-05 11:16 | A.OFFVIS_ITS ---
Vital Signs 02/05/25 11:18 Height 5 ft 3 in Weight 160 lb BMI 28.3 BP 118/55 L Blood Pressure Location Lt brachial Position Sitting Pulse 77 Pulse Oximetry (%) 98 Oxygen Delivery Method Room Air Intake Visit Reasons: f/u cirrhosis Intake Note: Patient follow up for Abdominal bloating and GERD. Patient cc: acid reflux at night time, denies any other GI issues for today visit. Sales Representative Adding Machines Required: Yes Sales Representative Adding Machines Name: [facility]peter Accompanied by: Family/Other Allergies No Known Allergies [No Known Allergies*] Allergy (Verified 02/05/25 11:16) Medication List - Last Reconciled 02/05/25 by Luis Che MD albuterol sulfate 90 mcg/actuation 2 puffs inhalation Q6H PRN aspirin 81 mg PO DAILY atorvastatin 40 mg PO DAILY calcium carbonate-vitamin D3 600 mg-10 mcg (400 unit) 1 tab PO BID cholecalciferol (vitamin D3) 25 mcg PO DAILY levothyroxine 50 mcg PO DAILY lisinopril 5 mg PO DAILY melatonin 3 mg PO BEDTIME PRN metformin 500 mg PO DAILY omeprazole 40 mg PO DAILY HPI HPI f/u cirrhosis: Details: GI CLINIC VISIT FOR THIS 73-YEAR-OLD ARABIC-SPEAKING FEMALE FOR FOLLOW-UP OF ABDOMINAL? BLOATING AND FECAL INCONTINENCE. Patient is being followed in GI since Jun 2018. Pt reports having hernia surgery at [facility] > than 3 years ago. CHRONIC ILLNESSES:?PMX of thyroid cancer, CKD, sarcoidosis, high? cholesterol, osteopenia, RADHIKA (non compliant CPAP), psoriasis, hypothyroid GERD,? ETOH abuse and hepatic steatosis, calcified lung mass RUL, smoker, neck and? throacic spine pain TODAY'S VISIT Patient follow up for Abdominal bloating and GERD. Patient cc: acid reflux at night time, Pt is accompanied by her daughter, Fatuma [facility] production stage manager, Ina Lately I have been getting acid reflux at night when she goes to sleep 2-3 weeks. Has dinner at 5 pm and sometimes has a snack at 7 pm and goes to bed at 9 pm. Has a bad taste in the mouth, drinks water or 1% cold milk, walks around and has to wash her mouth. Sleeps on 2 pillows Has been treated with prednisone recently Does not have significant symptoms during the day Denies dysphagia or constipation. PAST VISIT: Denies being constipated. Notes upper abdominal discomfort at night. Comes suddenly and goes away fast Not associated with eating. Intermittent constipation and denies taking any medication. Prescribed aspirin after she was [place] [facility] [place] temporary loss of vision followed by double vision. (? due to a TIA) EGD and colon results reviewed with the patient. Pt is accompanied by her grand daughter who also helped interpret for the patient . Abdominal pain has improved. Abd CT results were reviewed with the patient. Pt states she has not been called to schedule colonoscopy appt Accompanied by her daughter (helped with interpretation) and great grandson. ? ? ? Pt complains of intermittent upper abdomen and periumblical area x 1 month. ?? ? Pain is almost daily and feels like a pressure and can be 8/10 in intensity and lasts? 6-7 min and resolves spontaneously Denies any clear precipitating factors - some times she notes pain after eating, pain can wake her up at night. Pt notes nausea and denies vomiting, fever, chills or sweating. Has lost 3 lbs over the past month. Has been having heartburn - stopped after she had surgery. She has been having intermittent diarrhea for the past month - has 3 or more BMs a day. Denies ongoing fecal incontinence ?Seen by Nessa and was placed on? FODMAP diet. ?Feeling a little better. ?Stopped taking milk? products. ?Gas is less and not as bad as in the past. ?Fecal? incontinence is better and mostly related to passage of gas. ?Stopped? taking Omeprazole since it was not helping. ?Notes intermittent? dysphagia to solid food after she starts eating and has to throw up and is able? to eat after that. ?Denies noticing any weight loss ?PAST? VISITS: ?Tried Gluten Free Diet x 2 weeks (found it to be expensive)? and no change in her symptoms. ?Sucralfate caused an upset? stomach. ?Abdomen is noisey and she finds it embarassing to go? out. ?Has been loosing weight. Had hiatal hernia repair? 08/2016 at [facility] and having GI problems since the surgery ? No? heartburn since the surgery and continuing to take Omeprazole. ? Notes? increased gas and bloating. ? Has abdominal discomfort related to? gas. ? Has tried gas X and several other otc medications without relief? of symptoms. ? Wakes up at night with upper abdominal pain which lasts? for several hours. ? Pain does not make the pain go away. ? Sometimes can have a BM without warning when she is in the rest room to? urinate. ? She is unable to control the gas and avoids public? places. ? No change in appetite. Weight loss from 173 to? 153. ? Patient denies change in bowel habits, black stools or rectal? bleeding ? Denies dysphagia, heartburn, nausea or vomiting, change in? appetite or weight. ? Patient is accompanied by her daughter (who? interpreted for the patient) and 2 year old grandson. ? Denies change? in gas and bloating. ? Still has fecal incontinence when she is trying? to pass the gas. ? Mostly has one BM a day mostly in the am. ? Denies nausea or vomiting, change in appetite or weight. ? Takes? Omeprazole 40 mg 2-3 times a month prn. ? Daughter was wondering if? video or pictures from her fundoplication surgery were available for review -? she was referred to [facility] Medical records ? LABS IN [place]:?from 2018 - reviewed. DECEMBER 2018? stool fat was normal stool for H pylori antigen was negative. IMAGING? STUDIES: 11/15/23 ABD US SHOWED: The liver parenchyma is sonographically normal. No evidence of cirrhotic morphology, steatosis or mass. * Shear wave liver elastography reveals a median stiffness of 1.07 m/s (reference: normal median stiffness is 1.3 m/s or less). High probability of being normal. However, note that there is statistic variability of the sampling data which can decrease accuracy. * Cholelithiasis. 05/2020 BARIUM SWALLOW SHOWED: ?Small hiatal hernia with mild gastroesophageal reflux. ? Small Zenker's diverticulum without any food residue. 07/[address] scan showed (reviewed with? Radiology):? GASTROINTESTINAL TRACT: Multiple surgical clips suggesting? prior hiatal hernia repair in the region of the gastroesophageal? junction.? No hiatal hernia. This is the appearance of a Yoselin? fundoplication. The stomach is otherwise unremarkable. Small bowel is? normal in caliber. No obstruction. Colonic diverticulosis noted. No? diverticulitis. No free air or free fluid. ABDOMINAL WALL: No? significant hernia is appreciated. ENDOSCOPIC STUDIES:??07/2023 EGD AND COLON SHOWED: ESOPHAGUS: GE junction at 30 cms, hiatal hernia 30 to 34 cms. A partially obstructing Schatzki's ring at GE junction - dilated with a 20 mm CRE balloon x 60 seconds Biopsies were obtained from the GE junction. No esophagitis or Sneed's. STOMACH: Moderate diffuse gastric erythema with nodular appearing gastric mu cosa. DUODENUM: A few 5 to 8 mm benign appearing nodules in the bulb - biopsied. Normal descending duodenum - biopsies were obtained from 3rd part of the duodenum to check for celiac sprue Colonoscopy Findings: One small polyp removed Random biopsies were obtained from right and left colon to check for microscopic colitis Moderate diverticulosis seen in the left colon Moderate hemorrhoids on retroflexed exam. Plan: Repeat Colonoscopy interval based on path results - in 5 years if polyps are adenomatous and 10 years if polyps are hyperplastic. 12/12/17 EGD showed a normal esophagus, nodular gastritis and negative H Pylori? and normal duodenal biopsies. Same day colonoscopy showed decreased anal? sphincter tone and a 3 mm sessile tubular adenoma in the ascending colon [facility] Medical History (Updated 02/05/25 @ 11:39 by Luis Che MD) Type 2 diabetes mellitus without complications Thoracic spine pain Neck pain Hepatic steatosis History of ETOH abuse Mass of upper lobe of right lung Hiatal hernia RADHIKA (obstructive sleep apnea) CKD (chronic kidney disease) HLD (hyperlipidemia) Hypothyroidism Hepatic steatosis GERD (gastroesophageal reflux disease) Abdominal bloating Dysphagia Sarcoidosis Thyroid cancer Surgical History Hx of partial thyroidectomy History of repair of hiatal hernia Hx of colonoscopy Hx of esophagogastroduodenoscopy Social History Household Members: Family Are you a primary home care associate to a significant other at home: Yes (3 year old great-grand child, daughter to help post-op) Do you presently have visiting nurse or other home services: No Alcohol intake: current Alcohol intake frequency: holidays/special occasions only Patient Tobacco Use Status: Former Tobacco user Tobacco use type: Cigarette Review of Systems Const Denies fever(s), Denies headache(s), Reports weight gain (of 6 lbs) and Denies weight loss Eyes Denies eye discharge and Denies irritation ENT Reports Normal hearing present, Denies dysphagia, Denies dizziness and Denies headache(s) Card Denies chest pain, Denies leg edema and Reports dyspnea on exertion Resp Denies cough, Reports dyspnea on exertion and Reports wheezing GI Denies abdominal pain, Denies change in bowel habits, Denies dysphagia and Reports heartburn Denies difficulty voiding and Denies dysuria Musc Denies back pain, Reports arthralgias and Reports other (Arthritis) Skin/Breast Denies pruritus, Denies rash and Denies jaundice Neuro Reports Normal hearing present, Denies Abnormal speech present, Denies dizziness, Denies headache(s) and Denies seizure-like activity Psych Denies anxiety, Denies depression and Denies panic attacks Endo Denies cold intolerance, Denies flushing and Denies heat intolerance Ayad/Lymph Denies easy bleeding and Denies easy bruising Aller/Immun Reports wheezing Physical Exam Vital Signs: Last Vital Signs Pulse 77 02/05/25 11:18 BP 118/55 L 02/05/25 11:18 Pulse Ox 98 02/05/25 11:18 Oxygen Delivery Method Room Air 02/05/25 11:18 BMI result Body Mass Index 28.3 Const General: healthy appearing and no acute distress Nutritional Appearance: overweight Orientation/consciousness: patient oriented x3 Limitations: language barrier HEENT Head: Yes normal to inspection Ears: hearing grossly normal bilaterally Mouth: Normal oral and palatal mucosa present Eyes Sclerae: sclerae normal Pupils: Equal, round and reactive pupils present Neck Neck: Yes normal visual inspection Chest Chest palpation & inspection: normal inspection of the chest Resp Effort & Inspection: normal respiratory effort Auscultation: clear to auscultation bilaterally Cardio Palpation: normal PMI Rate: regular rate Rhythm: regular rhythm Heart sounds: S1 normal heart sound present, S2 normal heart sound present and no murmurs GI Palpation (GI): Soft to palpation, nontender and No hepatosplenomegaly present Auscultation: normal bowel sounds Rectal Exam - Female: deferred Skin General skin exam: no rashes or lesions noted Neuro General: patient oriented x3, gait normal and moves all extremities Cranial nerves: Yes Equal, round and reactive pupils present and Yes Normal hearing present Speech: No Abnormal speech present Psych Appearance: grossly normal Mental Status: mental status grossly normal Assessment & Plan Assessment & Plan (1) Abdominal bloating: Code(s): R14.0 - Abdominal distension (gaseous) Category: Medical (2) Dysphagia, pharyngoesophageal phase: Comment: Likely due to esophageal motility disorder, no stricture noted on EGD Code(s): R13.14 - Dysphagia, pharyngoesophageal phase Category: Medical (3) Fecal incontinence: Code(s): R15.9 - Full incontinence of feces Category: Medical (4) GERD (gastroesophageal reflux disease): Code(s): K21.9 - Gastro-esophageal reflux disease without esophagitis Category: Medical (5) Hepatic steatosis: Comment: 2017 normal LFTs Code(s): K76.0 - Fatty (change of) liver, not elsewhere classified Category: Medical (6) Upper abdominal pain: Code(s): R10.10 - Upper abdominal pain, unspecified Category: Medical (7) Family history of pancreatic cancer: Code(s): Z80.0 - Family history of malignant neoplasm of digestive organs Category: Medical (8) History of colon polyps: Comment: 12/12/17 EGD showed a normal esophagus, nodular?gastritis and negative H Pylori and normal duodenal biopsies. Same day? colonoscopy showed decreased anal sphincter tone and a 3 mm sessile tubular? adenoma in the ascending colon. Colonoscopy Findings: One small adenomatous polyp was removed Random biopsies were obtained from right and left colon to check for microscopic colitis Moderate diverticulosis seen in the left colon Moderate hemorrhoids on retroflexed exam. Plan: Repeat Colonoscopy interval based on path results - in 5 years Code(s): Z86.010 - Personal history of colon polyps Category: Medical Plan 73 year old New Zealander-speaking female with PMX of thyroid cancer, CKD, sarcoidosis, high cholesterol,? osteopenia, RADHIKA (non compliant CPAP), psoriasis, hypothyroid GERD, ETOH abuse? and hepatic steatosis, calcified lung mass RUL, smoker, neck and throacic spine?pain followed in GI for abdominal pain associated with increased gas and bloating since her fundoplication surgery. She is status post fundoplication for GERD and hiatal hernia in 2017 with resolution of heartburn symptoms. No etiology found for her?symptoms. Patient noted partial improvement in symptoms gas and bloating while on a FODMAP diet in the past. Pt has been evaluated at [facility] with EGD, Colonoscopy? and gastric emptying study. 08/31/17 Gastric emptying study showed delayed? liquid material gastric emptying. 10/17/17 High Resolution Anorectal Motility? showed Type 1 dyssynergia on strain maneuver (pt was able to expel the 60 ml? balloon - unclear if she has clinically significant dyssynergia), weak squeeze?and decreased rectal sensation 12/12/17 EGD showed a normal esophagus, nodular?gastritis and negative H Pylori and normal duodenal biopsies. Same day? colonoscopy showed decreased anal sphincter tone and a 3 mm sessile tubular? adenoma in the ascending colon Abdominal CT scan (given positive FH of? pancreatic CA in her brother and 2 nephews) and a history of smoking was? obtained for evaluation and was negative. Past Treatments: [place] of? citrucil and Peptobismol was not helpful 10 day course of Metrondazole for? suspected SIBO without significant improveme nt in her symptoms. Noted? increased gas with Sucralfate. Patient seen urgently today for intermittent abdominal pain for the past month associated with nausea. Trial of dicyclomine for abdominal pain in the interim. 12/[address] scan showed: Sigmoid and rest of the colon diverticulosis without diverticulitis. ?Mild constipation without obstruction. ?Right renal midpole simple cyst. ?No major change compared to previous CT abdomen exam 07/23/2018. [place] of Miralax three times a week to see if her abdominal pain improves. 10/04/23 EGD and colon results reviewed with the patient. Notes upper abdominal discomfort at night. Comes suddenly and goes away fast Not associated with eating. Intermittent constipation and denies taking any medication. Pt had questions re dx of cirrhosis in her problem list She was advised labs, abd US with elastography for further evaluation Liver fibrosis score 0.19 and Fibrosis stage F0 No cirrhosis noted on US with Elastography 02/21/24 Notes upper abdominal discomfort at night. Comes suddenly and goes away fast Not associated with eating. Intermittent constipation and denies taking any medication. Prescribed aspirin after she was [place] [facility] [place] temporary loss of vision followed by double vision. (? due to a TIA) 02/05/25 Pt complains of nocturnal heartburn and regurgitation - likely related to recurrent hiatal hernia She was advised to: 1. Switch to Pantoprazole 40 mg daily 2. Use a Wedge to elevate the head of her bed 3. Schedule a barium swallow to FU on hiatal hernia 4. Schedule an EGD - request sent to GI surgical schedulers. FU in 3 months Orders: Orders [place] barium swallow Today K21.9 - Gastro-esophageal reflux disease without esophagitis Medications: New pantoprazole 40 mg PO DAILY 60 days 60 tabs 3RF K21.9 - Gastro-esophageal reflux disease without esophagitis Coding Level of Care Code Est Pt Level 4 (07727) Diagnoses Abdominal bloating R14.0 Dysphagia, pharyngoesophageal phase R13.14 Fecal incontinence R15.9 GERD (gastroesophageal reflux disease) K21.9 Hepatic steatosis K76.0 Upper abdominal pain R10.10 Family history of pancreatic cancer Z80.0 History of colon polyps Z86.010 Time Spent (min) 28
[2025-02-05 11:18] VITALS: BP 118/55; PULSE 77; O2SAT 98; BMI 28.3
--- OUTSIDE RECORDS SUMMARY | 2025-02-05 13:09 | XMS_ITS | Continuity of Care Document ---
Author Organization [facility] Address [address] [place] [address] Phone Care Team Providers Care Sternman Name Role Phone Chester LAZARO, MARICHUY, Marco SAWYER Unavailable U navailable Procedures Procedure Date Office/Oupt E&M New Pt 30 Mins- CT & [place] Duplex Scan-extrem Veins; Comp- CT & [place] Advance Directives Directive Yes / No Effective Date File Name Other Directive No 01/06/2025 N/A WARNING:The information contained in this section is historical and is provided for information only and does not constitute a legal document or any assurance that the information is still accurate. Please verify the information with the chavez of the legal document before using it for clinical purposes. Encounters Encounter Description Practice Location Reason(s) For Visit Diagnoses Date Provider Providers Copied on Encounter Office/Oupt E&M New Pt 30 Mins- CT & [place] [facility], [address], [place], [id number], [place] tel:[phone] [facility] Varicose veins of bilateral lower extremities with other complicationsPa in in right lower legPain in left lower legPain in right legType 2 diabetes mellitus without complicationsRe stless legs syndromeLymphed sebastien, not elsewhere classifiedPruri tus, unspecifiedPain in left legHereditary lymphedemaCramp and spasmLocalized edema Chester LAZARO, MARICHUY, SILVERIO Lara. [address], [place], [id number] , [place]. [phone] [facility], [address], [place], [id number], [place] tel:[phone] [facility] [place] [facility] [place] Chronic venous hypertension (idiopathic) with other complications of bilateral lower extremity Chester LAZARO, MARICHUY, SILVERIO Lraa. [address], [address], [place], [id number] , [place]. [phone] Referring Provider: Marco Briggs MD, MARICHUY, SILVERIO, [address], [place], [address] . tel:[phone] Family History Family Member Type Diagnosis Age At Onset No Information Payers Payer name Insurance type Covered green party ID Authoriza marlene(s) [facility] Dual Complete CI [id number] Social History Type Description Quantity Date Captured Comments Alcohol Use Details Unknown Caffeine Use Details Unknown Tobacco Use Status No Information Smoking Status Former Smoker Non-Smoking Tobacco Use Details : No Details Available : No Details Available Sex Female Vital Signs Date / Time: Height Weight BMI Pulse Rate Blood Pressure Temperature Respiratory Rate Body Surface Area Head Circumference Head Circ. Percentile Wt./[place]. Percentile BMI percentile Pulse Ox Inhaled Ox 72.570 kg (160.00 lbs) 28.3 8 kg/m eter (2) 122/80 mm[Hg] Chief Complaint And Reason For Visit No Information Reason For Referral Reason For Referral No Information Plan Of Treatment Date Type Action Status Goal Diet education completed Goal Tobacco cessation counseling completed Referral Ordered: Weight management: Referral to physician timeframe: 3 Months (related to Body mass index (BMI) 28.0-28.9, adult) ordered Appointment Esther Love BOOKED Appointment Esther Love BOOKED Appointment Esther Love BOOKED Appointment Esther Love BOOKED Appointment Esthre Love BOOKED Appointment Esther Love BOOKED Appointment Esther Love BOOKED Appointment Esther Love BOOKED History Of Present Illness Encounter Date Complaint History Of Prese nt Illness No Information Functional Status Date Functional Assessmen t No Information Instructions Date Instruction Additional Infor mation Diet education Related to Body mass index (BMI) 28.0-28.9, adult Giving Encouragement to exercise Related to Body mass index (BMI) 28.0-28.9, adult Lifestyle education Related to B mariluz mass index (BMI) 28.0-28.9, adult Patient education booklet given Related to Varicose veins of bilateral lower extremities with other complications Pre and post instruc tions reviewed and provided Related to Varicose veins of bilateral lower extremities with other complications Assessments Type Assessment Date No Information Patient Care Teams Name Effective Dates (start - stop) Status Members No Information
== END 2025-02-05 12:13 | disposition home or self-care (01) ==
LOC: HO.HGI 11:13
PROVIDERS: PCP Internal Medicine; Visit Provider Internal Medicine Gastroenterology
DX: R14.0 Abdominal distension (gaseous) (principal); R13.14 Dysphagia, pharyngoesophageal phase; R15.9 Full incontinence of feces; K21.9 Gastro-esophageal reflux disease without esophagitis; K76.0 Fatty (change of) liver, not elsewhere classified; R10.10 Upper abdominal pain, unspecified; Z80.0 Family history of malignant neoplasm of digestive organs; Z86.0100 Personal history of colon polyps, unspecified
CPT/HCPCS: 99214

== ENCOUNTER → 2025-02-05 11:12 | Outpatient (BNVA) | payer OTHER, SELFPAY | PROVIDERS: PCP Internal Medicine; Visit Provider Internal Medicine Gastroenterology | DX: R14.0 Abdominal distension (gaseous) (principal); K21.9 Gastro-esophageal reflux disease without esophagitis; R13.14 Dysphagia, pharyngoesophageal phase; R15.9 Full incontinence of feces; R10.10 Upper abdominal pain, unspecified; K76.0 Fatty (change of) liver, not elsewhere classified; Z80.0 Family history of malignant neoplasm of digestive organs; Z86.0100 Personal history of colon polyps, unspecified | CPT/HCPCS: 99212 ==

== ENCOUNTER 2025-02-18 08:12 | Outpatient (REF) | payer OTHER, SELFPAY ==
--- NOTE | ~2025-02-18 | FL_ITS ---
EXAMINATION: XR FLUOROSCOPY ESOPHAGRAM. CLINICAL INFORMATION: Patient complaining of worsening reflux symptoms. COMPARISON: 06/16/2020. TECHNIQUE: Fluoroscopic air contrast esophagram examination was performed with the aid of an curator of education utilizing standard techniques with thin and thick barium and effervescent granules. Numerous spot images were obtained. Several fluoroscopic image hold cine sequences were also obtained. FINDINGS: ESOPHAGRAM: Lateral cine images of the oropharynx and hypopharynx demonstrate normal swallow mechanism with normal epiglottic inversion and soft palate elevation. No laryngeal penetration, glottic or subglottic aspiration identified. No nasopharyngeal reflux present. There is a small Zenker's diverticulum present. Hypopharyngeal structures otherwise appear normal. 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 Dual and single contrast images of the esophagus demonstrate a patulous caliber. Granular esophageal mucosal pattern suggesting esophagitis. No evidence of stricture, mass, or ulcerations identified. Esophageal peristalsis was mild to moderately disordered. Moderate sized paraesophageal hiatus hernia present. There was significant gastroesophageal reflux noted during the course of the examination to the level of the thoracic inlet. GE junction is somewhat patulous. There are surgical clips at the level of the GE junction. Dual contrast and single contrast images of the stomach demonstrated normal contour and mucosal pattern without evidence of mass, ulceration, or other abnormality. The gastric rugal folds appear thickened, suggesting gastritis. Contrast freely passed into the gastric antrum and duodenal bulb without delay. Single and air-contrast images of the duodenal bulb demonstrate no abnormality. The duodenal sweep has a normal appearance, course, and mucosal fold appearance. There is a second segment duodenal diverticulum present. FLUOROSCOPY TIME: 2 minutes, 21 seconds Number of Spot Images:8 Number of cines obtained: 9 DOSE AREA PRODUCT: 2830 uGy-m2 (microgray-meter squared) FL/FL barium swallow with air IMPRESSION: 1. Moderate cricopharyngeal achalasia. 2. Tiny Zenker's diverticulum present. 3. Mildly patulous esophagus with granular esophageal mucosal pattern suggesting esophagitis. Mild to moderately disordered esophageal peristalsis. 4. Moderate size paraesophageal hiatus hernia. There are surgical clips at the level of the GE junction. 5. Episodic gastroesophageal reflux to the level of the thoracic inlet. 6. Thickened gastric rugal folds suggesting gastritis. 7. Second segment duodenal diverticulum. Electronically signed by: Bryson Ansari MD 02/18/2025 09:25 AM EDT RP
--- OUTSIDE RECORDS SUMMARY | 2025-02-18 08:24 | XMS_ITS | Encounter Summary ---
Author Organization [employer] Address [address] [place] [address] Care Team Providers Care Casino Runner Name Role Phone Rosa Hinds MD Primary Care Prov ider Reason for Visit * Reason Onset Date Comments PROVIDER CALL BACK 02/16/2025 Encounter Details Date Type Department Care Team (Late st Contact Info) Description 02/16/2025 Telephone Orthopedics - [place] [address] [place] [phone] Doug Rogers PA [address] [place] [address] PROVIDER CALL BACK Social History Tobacco Use Types Packs/Day Years Used Date Smoking Tobacco: Former Cigarettes 0.5 41.9 1 09/27/1978 - 06/27/2021 Passive Smoke Exposure: Past Smokeless Tobacco: Never Alcohol Use Standard Drinks/Week Comments Yes 0 (1 standard drink = 0.6 oz pur e alcohol) Housing Instability Answer Date Recorde d Are you worried that in the next 2 months you may not have stable housing? No 08/05/2024 Food Access & Nutrition Answer Date Rec orded Do you have access to a vari ety of food including fruits and vegetables? Yes 08/05/2024 Health Literacy Answer Date Recorded How often do you need to hav e someone help you when you read instructions, pamphlets, or other written material from your doctor or pharmacy? Never 08/05/2024 Caregiver: How often do you need to have someone help you when you read instructions, pamphlets, or other written material from your doctor or pharmacy? Not on file 08/05/2024 Financial Risk Answer Date Recorded How hard is it for you to pa y for the very basics like food, housing, medical care, and air conditioning / heating? Not very hard 08/05/2024 Transportation Answer Date Recorded Has the lack of transportati on kept you from meetings, work, or from getting things needed for daily living? No Has the lack of transportati on kept you from medical appointments or from getting medications? No 08/05/2024 Social Isolation Answer Date Recorded How often do you feel lonely or isolated from th ose around you? Never 08/05/2024 Food Risk Answer Date Recorded Within the past 12 months we worried whether our food would run out before we got money to buy more. Never true 08/05/2024 Within the past 12 months th e food we bought just didn't last and we didn't have money to get more. Never true 08/05/2024 Dependent Care Answer Date Recorded Do you need help finding or paying for care for your loved ones. For example, child care director or elderly care for an older adult? No 08/05/2024 Education Answer Date Recorded Do you think completing more education or training, like finishing a GED, going to college, or learning a trade, would be helpful for you? No 08/05/2024 Employment and Income Answer Date Recor ded During the last four weeks, have you been actively looking for work? No 08/05/2024 Living Situation Answer Date Recorded What is your living situation? 1 10/06/2023 Comments No Sex and Gender Information Value Date Recorded Sex Assigned at Not on file Legal Sex Female 9:14 AM EST Gender Identity Not on file Sexual Orientation Not on file documented as of this encounter Progress Notes * Ruba Melendez MA - 02/16/2025 3:58 PM EDT Gave daughter X-ray result and discussed current meds. Tylenol arthritis strength and directions for prednisone Doug had prescribed, which patient did not start yet. Daughter is aware provider is outof the office this week. vf * Carol Rosa - 02/16/2025 11:52 AM EDT Pt daughter Elina (on vr) calling to follow up on xray that was completed 02/12. Please call [phone] documented in this encounter Plan of Treatment Upcoming Encounters Date Type Department Care Team (Late st Contact Info) Description 02/26/2025 1:00 PM EDT Office Visit Orthopedics - [address] [phone] Doug Rogers PA [address], [place] 03/04/2025 1:00 PM EDT Office Visit [facility] - [address] [phone] Camilla Younger PA [address] [place], [place] 10/06/2025 10:30 AM EST Office Visit Pulmonolgy - [place] [address] [phone] Ambreen Olivares MD [address] [address] 01/04/2026 12:45 PM EDT Ancillary Procedure [facility] [address] [facility] [address] [place] [phone] documented as of this encounter Visit Diagnoses Not on filedocumented in this encounter Care Teams Casino Runner Relationship Specialty Start Date End Date Rosa Hinds MD [address] [place] [address] PCP - General Internal Medicine 08/21/24 documented as of this encounter
== END 2025-02-18 08:13 | disposition home or self-care (01) ==
LOC: HO.XRAY 08:12
PROVIDERS: PCP Internal Medicine; Visit Provider Internal Medicine Gastroenterology
DX: K21.9 Gastro-esophageal reflux disease without esophagitis (principal)
CPT/HCPCS: 74221

== ENCOUNTER → 2025-02-18 08:13 | Outpatient (BNV) | payer OTHER, SELFPAY | PROVIDERS: PCP Internal Medicine; Visit Provider Radiology Diagnostic Radiology | DX: K22.0 Achalasia of cardia (principal); K22.5 Diverticulum of esophagus, acquired; K44.9 Diaphragmatic hernia without obstruction or gangrene; K21.9 Gastro-esophageal reflux disease without esophagitis | CPT/HCPCS: 74221 ==

== ENCOUNTER 2025-05-21 09:55 | Outpatient (AMB) | payer OTHER, SELFPAY ==
[2025-05-21 10:10] VITALS: BP 108/48; PULSE 79; O2SAT 96; BMI 27.8
--- NOTE | 2025-05-21 10:10 | A.OFFVIS_ITS ---
Vital Signs 05/21/25 10:10 Height 5 ft 3 in Weight 157 lb BMI 27.8 BP 108/48 L Blood Pressure Location Lt brachial Position Sitting Pulse 79 Pulse Oximetry (%) 96 Oxygen Delivery Method Room Air Intake Visit Reasons: F/U Gerd, Hiatal Hernia Intake Note: Patient follow up for GERD and Barium swallow result. Patient cc: constipation on and off, acid reflux on and off with white flame, denies any other GI issues. Frame Fixer Required: Yes Frame Fixer Name: [facility] Interpeter Accompanied by: Self / Same As Patient Allergies No Known Allergies (No Known Allergies*) Allergy (Verified 09/17/25 10:14) Medication List - Last Reconciled 05/21/25 by Luis Che MD albuterol sulfate 90 mcg/actuation 2 puffs inhalation Q6H PRN aspirin 81 mg PO DAILY atorvastatin 40 mg PO DAILY calcium carbonate-vitamin D3 600 mg-10 mcg (400 unit) 1 tab PO BID levothyroxine 50 mcg PO DAILY lisinopril 5 mg PO DAILY melatonin 3 mg PO BEDTIME PRN metformin 500 mg PO DAILY pantoprazole 40 mg PO DAILY 60 days HPI HPI F/U Gerd, Hiatal Hernia: Details: GI Clinic visit for this 74-year-old Central [place]-speaking female for follow-up of abdominal bloating and fecal incontinence. Patient is being followed in GI since Jun 2018. Pt reports having hernia surgery at [facility] > than 3 years ago. CHRONIC ILLNESSES:?PMX of thyroid cancer, CKD, sarcoidosis, high? cholesterol, osteopenia, RADHIKA (non compliant CPAP), psoriasis, hypothyroid GERD,? ETOH abuse and hepatic steatosis, calcified lung mass RUL, smoker, neck and? throacic spine pain TODAY'S VISIT Patient follow up for Abdominal bloating and GERD. Patient complains of constipation on and off, acid reflux on and off with white flame, Pt is accompanied by her daughter, Fatuma [facility] interpreter, Musa Taking Pantoprazole and still having some burning Thinks Omeprazole was working better Lately I have been getting acid reflux at night when she goes to sleep 2-3 weeks. Has dinner at 5 pm and sometimes has a snack at 7 pm and goes to bed at 9 pm. Has a bad taste in the mouth, drinks water or 1% cold milk, walks around and has to wash her mouth. Sleeps on 2 pillows Has been treated with prednisone recently Does not have significant symptoms during the day Denies dysphagia or constipation. PAST VISIT: Denies being constipated. Notes upper abdominal discomfort at night. Comes suddenly and goes away fast Not associated with eating. Intermittent constipation and denies taking any medication. Prescribed aspirin after she was hospitalized at [facility] with temporary loss of vision followed by double vision. (? due to a TIA) EGD and colon results reviewed with the patient. Pt is accompanied by her grand daughter who also helped interpret for the patient . Abdominal pain has improved. Abd CT results were reviewed with the patient. Pt states she has not been called to schedule colonoscopy appt Accompanied by her daughter (helped with interpretation) and great grandson. ? ? ? Pt complains of intermittent upper abdomen and periumblical area x 1 month. ?? ? Pain is almost daily and feels like a pressure and can be 8/10 in intensity and lasts? 6-7 min and resolves spontaneously Denies any clear precipitating factors - some times she notes pain after eating, pain can wake her up at night. Pt notes nausea and denies vomiting, fever, chills or sweating. Has lost 3 lbs over the past month. Has been having heartburn - stopped after she had surgery. She has been having intermittent diarrhea for the past month - has 3 or more BMs a day. Denies ongoing fecal incontinence ?Seen by Nessa and was placed on? FODMAP diet. ?Feeling a little better. ?Stopped taking milk? products. ?Gas is less and not as bad as in the past. ?Fecal? incontinence is better and mostly related to passage of gas. ?Stopped? taking Omeprazole since it was not helping. ?Notes intermittent? dysphagia to solid food after she starts eating and has to throw up and is able? to eat after that. ?Denies noticing any weight loss ?PAST? VISITS: ?Tried Gluten Free Diet x 2 weeks (found it to be expensive)? and no change in her symptoms. ?Sucralfate caused an upset? stomach. ?Abdomen is noisey and she finds it embarassing to go? out. ?Has been loosing weight. Had hiatal hernia repair? 08/2016 at [facility] and having GI problems since the surgery ? No? heartburn since the surgery and continuing to take Omeprazole. ? Notes? increased gas and bloating. ? Has abdominal discomfort related to? gas. ? Has tried gas X and several other otc medications without relief? of symptoms. ? Wakes up at night with upper abdominal pain which lasts? for several hours. ? Pain does not make the pain go away. ? Sometimes can have a BM without warning when she is in the rest room to? urinate. ? She is unable to control the gas and avoids public? places. ? No change in appetite. Weight loss from 173 to? 153. ? Patient denies change in bowel habits, black stools or rectal? bleeding ? Denies dysphagia, heartburn, nausea or vomiting, change in? appetite or weight. ? Patient is accompanied by her daughter (who? interpreted for the patient) and 2 year old grandson. ? Denies change? in gas and bloating. ? Still has fecal incontinence when she is trying? to pass the gas. ? Mostly has one BM a day mostly in the am. ? Denies nausea or vomiting, change in appetite or weight. ? Takes? Omeprazole 40 mg 2-3 times a month prn. ? Daughter was wondering if? video or pictures from her fundoplication surgery were available for review -? she was referred to [facility] Medical records ? LABS IN [employer]:?from 2018 - reviewed. DECEMBER 2018? stool fat was normal stool for H pylori antigen was negative. IMAGING? STUDIES: 11/15/23 ABD US SHOWED: The liver parenchyma is sonographically normal. No evidence of cirrhotic morphology, steatosis or mass. * Shear wave liver elastography reveals a median stiffness of 1.07 m/s (reference: normal median stiffness is 1.3 m/s or less). High probability of being normal. However, note that there is statistic variability of the sampling data which can decrease accuracy. * Cholelithiasis. 02/18/25 BARIUM SWALLOW SHOWED: 1. Moderate cricopharyngeal achalasia. 2. Tiny Zenker's diverticulum present. 3. Mildly patulous esophagus with granular esophageal mucosal pattern suggesting esophagitis. Mild to moderately disordered esophageal peristalsis. 4. Moderate size paraesophageal hiatus hernia. There are surgical clips at the level of the GE junction. 5. Episodic gastroesophageal reflux to the level of the thoracic inlet. 6. Thickened gastric rugal folds suggesting gastritis. 7. Second segment duodenal diverticulum. 05/2020 BARIUM SWALLOW SHOWED: ?Small hiatal hernia with mild gastroesophageal reflux. ? Small Zenker's diverticulum without any food residue. 07/[address] scan showed (reviewed with? Radiology):? GASTROINTESTINAL TRACT: Multiple surgical clips suggesting? prior hiatal hernia repair in the region of the gastroesophageal? junction.? No hiatal hernia. This is the appearance of a Yoselin? fundoplication. The stomach is otherwise unremarkable. Small bowel is? normal in caliber. No obstruction. Colonic diverticulosis noted. No? diverticulitis. No free air or free fluid. ABDOMINAL WALL: No? significant hernia is appreciated. ENDOSCOPIC STUDIES:??07/2023 EGD AND COLON SHOWED: ESOPHAGUS: GE junction at 30 cms, hiatal hernia 30 to 34 cms. A partially obstructing Schatzki's ring at GE junction - dilated with a 20 mm CRE balloon x 60 seconds Biopsies were obtained from the GE junction. No esophagitis or Sneed's. STOMACH: Moderate diffuse gastric erythema with nodular appearing gastric mucosa. DUODENUM: A few 5 to 8 mm benign appearing nodules in the bulb - biopsied. Normal descending duodenum - biopsies were obtained from 3rd part of the duodenum to check for celiac sprue Colonoscopy Findings: One small polyp removed Random biopsies were obtained from right and left colon to check for microscopic colitis Moderate diverticulosis seen in the left colon Moderate hemorrhoids on retroflexed exam. Plan: Repeat Colonoscopy interval based on path results - in 5 years if polyps are adenomatous and 10 years if polyps are hyperplastic. 12/12/17 EGD showed a normal esophagus, nodular gastritis and negative H Pylori? and normal duodenal biopsies. Same day colonoscopy showed decreased anal? sphincter tone and a 3 mm sessile tubular adenoma in the ascending colon [facility] Medical History (Updated 10/01/25 @ 10:36 by Nora Briggs RN) Hiatal hernia with gastroesophageal reflux Insomnia Type 2 diabetes mellitus without complications Thoracic spine pain Neck pain History of ETOH abuse Mass of upper lobe of right lung RADHIKA (obstructive sleep apnea) CKD (chronic kidney disease) HLD (hyperlipidemia) Hypothyroidism Hepatic steatosis GERD (gastroesophageal reflux disease) Abdominal bloating Dysphagia Sarcoidosis Thyroid cancer Surgical History Hx of partial thyroidectomy History of repair of hiatal hernia Hx of colonoscopy Hx of esophagogastroduodenoscopy Social History Household Members: Family Are you a primary summer child caregiver to a significant other at home: Yes (3 year old great-grand child, daughter to help post-op) Do you presently have visiting nurse or other home services: No Alcohol intake: current Alcohol intake frequency: holidays/special occasions only Patient Tobacco Use Status: Former Tobacco user Tobacco use type: Cigarette Review of Systems Const All systems reviewed & are unremarkable except as noted in HPI and below Physical Exam Vital Signs: Last Vital Signs Pulse 79 05/21/25 10:10 BP 108/48 L 05/21/25 10:10 Pulse Ox 96 05/21/25 10:10 Oxygen Delivery Method Room Air 05/21/25 10:10 BMI result Body Mass Index 27.8 Const General: healthy appearing and no acute distress Nutritional Appearance: overweight Orientation/consciousness: patient oriented x3 Limitations: language barrier HEENT Head: Yes normal to inspection Ears: hearing grossly normal bilaterally Eyes Sclerae: sclerae normal Pupils: Equal, round and reactive pupils present Neck Neck: Yes normal visual inspection Chest Chest palpation & inspection: normal inspection of the chest Resp Effort & Inspection: normal respiratory effort Auscultation: clear to auscultation bilaterally Cardio Palpation: normal PMI Rate: regular rate Rhythm: regular rhythm Heart sounds: S1 normal heart sound present, S2 normal heart sound present and no murmurs GI Palpation (GI): Soft to palpation, nontender and No hepatosplenomegaly present Auscultation: normal bowel sounds Rectal Exam - Female: deferred Skin General skin exam: no rashes or lesions noted Neuro General: patient oriented x3, gait normal and moves all extremities Cranial nerves: Yes Equal, round and reactive pupils present Psych Appearance: grossly normal Mental Status: mental status grossly normal Assessment & Plan Assessment & Plan (1) Abdominal bloating: Code(s): R14.0 - Abdominal distension (gaseous) Category: Medical (2) Dysphagia, pharyngoesophageal phase: Comment: Likely due to esophageal motility disorder, no stricture noted on EGD Code(s): R13.14 - Dysphagia, pharyngoesophageal phase Category: Medical (3) Fecal incontinence: Code(s): R15.9 - Full incontinence of feces Category: Medical (4) Cirrhosis: Code(s): K74.60 - Unspecified cirrhosis of liver Category: Medical (5) GERD (gastroesophageal reflux disease): Code(s): K21.9 - Gastro-esophageal reflux disease without esophagitis Category: Medical (6) Hepatic steatosis: Comment: 2017 normal LFTs Code(s): K76.0 - Fatty (change of) liver, not elsewhere classified Category: Medical (7) History of colon polyps: Comment: 12/12/17 EGD showed a normal esophagus, nodular?gastritis and negative H Pylori and normal duodenal biopsies. Same day? colonoscopy showed decreased anal sphincter tone and a 3 mm sessile tubular? adenoma in the ascending colon. Colonoscopy Findings: One small adenomatous polyp was removed Random biopsies were obtained from right and left colon to check for microscopic colitis Moderate diverticulosis seen in the left colon Moderate hemorrhoids on retroflexed exam. Plan: Repeat Colonoscopy interval based on path results - in 5 years Code(s): Z86.010 - Personal history of colon polyps Category: Medical (8) Paraesophageal hernia: Code(s): K44.9 - Diaphragmatic hernia without obstruction or gangrene Category: Medical Plan year old Central African-speaking female with PMX of thyroid cancer, CKD, sarcoidosis, high cholesterol,? osteopenia, RADHIKA (non compliant CPAP), psoriasis, hypothyroid GERD, ETOH abuse? and hepatic steatosis, calcified lung mass RUL, smoker, neck and throacic spine?pain followed in GI for abdominal pain associated with increased gas and bloating since her fundoplication surgery. She is status post fundoplication for GERD and hiatal hernia in 2017 with resolution of heartburn symptoms. No etiology found for her?symptoms. Patient noted partial improvement in symptoms gas and bloating while on a FODMAP diet in the past. Pt has been evaluated at [facility] with EGD, Colonoscopy? and gastric emptying study. 08/31/17 Gastric emptying study showed delayed? liquid material gastric emptying. 10/17/17 High Resolution Anorectal Motility? showed Type 1 dyssynergia on strain maneuver (pt was able to expel the 60 ml? balloon - unclear if she has clinically significant dyssynergia), weak squeeze?and decreased rectal sensation 12/12/17 EGD showed a normal esophagus, nodular?gastritis and negative H Pylori and normal duodenal biopsies. Same day? colonoscopy showed decreased anal sphincter tone and a 3 mm sessile tubular? adenoma in the ascending colon Abdominal CT scan (given positive FH of? pancreatic CA in her brother and 2 nephews) and a history of smoking was? obtained for evaluation and was negative. Past Treatments: Gueydan of? citrucil and Peptobismol was not helpful 10 day course of Metrondazole for? suspected SIBO without significant improvement in her symptoms. Noted? increased gas with Sucralfate. Patient seen urgently today for intermittent abdominal pain for the past month associated with nausea. Trial of dicyclomine for abdominal pain in the interim. 12/[address] scan showed: Sigmoid and rest of the colon diverticulosis without diverticulitis. ?Mild constipation without obstruction. ?Right renal midpole simple cyst. ?No major change compared to previous CT abdomen exam 07/23/2018. Gueydan of Miralax three times a week to see if her abdominal pain improves. 10/04/23 EGD and colon results reviewed with the patient. Notes upper abdominal discomfort at night. Comes suddenly and goes away fast Not associated with eating. Intermittent constipation and denies taking any medication. Pt had questions re dx of cirrhosis in her problem list She was advised labs, abd US with elastography for further evaluation Liver fibrosis score 0.19 and Fibrosis stage F0 No cirrhosis noted on US with Elastography 02/21/24 Notes upper abdominal discomfort at night. Comes suddenly and goes away fast Not associated with eating. Intermittent constipation and denies taking any medication. Prescribed aspirin after she was hospitalized at [facility] with temporary loss of vision followed by double vision. (? due to a TIA) 02/05/25 Pt complains of nocturnal heartburn and regurgitation - likely related to recurrent hiatal hernia She was advised to: 1. Switch to Pantoprazole 40 mg daily 2. Use a Wedge to elevate the head of her bed 3. Schedule a barium swallow to FU on hiatal hernia 4. Schedule an EGD - request sent to GI surgical schedulers. 05/21/25 Has a bad taste in the mouth, drinks water or 1% cold milk, walks around and has to wash her mouth. Sleeps on 2 pillows Has been treated with prednisone recently Pt advised to resume Omeprazole 20 mg twice daily and schedule an Upper endoscopy Referral sent to Dr Abrams for status post fundoplication, with recurrent para-esophageal hernia FU in 4 months Orders: Referrals Bariatric Surgery Referral K44.9 - Diaphragmatic hernia without obstruction or gangrene Medications: New omeprazole 20 mg PO BID 120 caps 3RF 60 days K21.9 - Gastro-esophageal reflux disease without esophagitis, R13.14 - Dysphagia, pharyngoesophageal phase Discontinued pantoprazole Discontinued Reason: Patient Completed Course 40 mg PO DAILY 60 days 60 tabs 3RF K21.9 - Gastro-esophageal reflux disease without esophagitis Coding Level of Care Code Est Pt Level 4 (65893) Diagnoses Abdominal bloating R14.0 Dysphagia, pharyngoesophageal phase R13.14 Fecal incontinence R15.9 Cirrhosis K74.60 GERD (gastroesophageal reflux disease) K21.9 Hepatic steatosis K76.0 History of colon polyps Z86.010 Paraesophageal hernia K44.9 Time Spent (min) 21
--- OUTSIDE RECORDS SUMMARY | 2025-05-21 11:53 | XMS_ITS | Clinical Summary ---
Author Organization [facility] Address [address] [place] [address] Phone Care Team Providers Care Tool Adjuster Name Role Phone Rosa Hinds MD Primary Care Prov ider Allergies No known active allergies Medications cetirizine (ZyrTEC) 10 mg tablet Take 1 tablet (10 mg total) by mouth 1 (one) time each day. 04/29/20 24 Active melatonin 3 mg tablet TAKE 1 TABLET BY MOUTH AT BEDTIME NEEDED (INSOMNIA). 03/10/20 24 Active clobetasoL (TEMOVATE) 0.05 % cream 01/02/20 24 Active blood sugar diagnostic (OneTouch Verio test strips) test strip Use to test blood sugar once daily 04/17/20 22 Active lancets 33 gauge misc Apply 1 Each topically daily. 04/17/20 22 Active blood-glucose meter kit Apply 1 Each topically daily. 04/17/20 22 Active inhalational spacing device (BreatheRite Valved MDI Chamber) inhaler by Does not apply route. 05/11/20 21 Active albuterol HFA (PROAIR HFA ; PROVENTIL HFA ; VENTOLIN HFA) 90 mcg/actuation inhalerIndicat ions:Sarcoidos is Inhale 2 puffs by mouth every 6 (six) hours if needed for wheezing or shortness of breath. 1 each 08/13/20 24 025 Active calcium carbonate-connor min D 600 mg-10 mcg (400 unit) per tablet TAKE 1 TABLET BY MOUTH TWICE DAILY 60 tablet 3 10/09/19 25 Active acetaminophen (Tylenol 8 Hour) 650 mg 8 hr tablet Take 1 tablet (650 mg total) by mouth every 8 (eight) hours if needed for mild pain or moderate pain. Do not crush, chew, or split. 90 tablet 1 11/14/19 25 Active atorvastatin (LIPITOR) 80 mg tablet TAKE 1 TABLET BY MOUTH DAILY 30 tablet 10 12/05/19 25 Active aspirin 81 mg EC tablet TAKE 1 TABLET BY MOUTH EVERY DAY 90 tablet 12/30/19 25 Active cyclobenzaprin e (FLEXERIL) 10 mg tablet Take 1 tablet (10 mg total) by mouth at bedtime as needed for muscle spasms. 30 tablet 01/06/20 25 Active metFORMIN XR (GLUCOPHAGE-XR ) 500 mg 24 hr tablet Take 1 tablet (500 mg total) by mouth 2 (two) times a day with meals. 180 tablet 03/04/20 25 Active pantoprazole (PROTONIX) 40 mg EC tablet Take 1 tablet (40 mg total) by mouth 1 (one) time each day before breakfast. Do not crush, chew, or split. Active lisinopriL (PRINIVIL,ZEST RIL) 2.5 mg tablet Take 1 tablet (2.5 mg total) by mouth 1 (one) time each day. 90 each 3 03/16/20 25 026 Active diclofenac (VOLTAREN) 1 % topical gel APPLY 4 GRAMS TOPICALLY 2 TIMES DAILY NEEDED (PAIN). 100 g 3 05/07/20 25 Active levothyroxine (SYNTHROID, LEVOTHROID) 50 mcg tablet TAKE 1 TABLET (50 MCG TOTAL) BY MOUTH 1 (ONE) TIME EACH DAY. 30 tablet 4 05/11/20 25 Active levothyroxine (SYNTHROID, LEVOTHROID) 50 mcg tablet Take 1 tablet (50 mcg total) by mouth 1 (one) time each day. 90 tablet 1 10/10/19 25 025 Discontinued diclofenac (VOLTAREN) 1 % topical gel Apply 2 g topically 2 (two) times a day. 60 g 1 11/14/19 25 025 Discontinued Active Problems Problem Noted Date Diagnosed Date Overweight (BMI 25.0-29.9) 03/04/2025 De Quervain's tenosynovitis 04/11/2023 Hiatal hernia 06/07/2022 Pelvic pain 04/17/2022 Overview (07/02/2024): Last Assessment & Plan: Discussed potential causes of pelvic pain with the patient including infections, ovarian cysts, interstitial cystitis, irritable bowel, and MSK etiologies. UA negative. Wet prep collected. Pelvic US ordered for further evaluation Discussed with patient that if evaluation is normal and she continues to have pain I recommend that she return to her PCP for further evaluation of non-industrial design intern causes of pain. Type II diabetes mellitus ([facility] V24, [facility] V28) 01/19/2022 Assessment & Plan (03/16/2025 3:45 PM EDT): Good control of diabetes.A1C: 7.0 Patient will continue with yearly Podiatric and Ophthomologic evaluations. Will continue Angiotensin Converting Enzyme Inhibitor for renal protection, Lisinopril 2.5mg day, Metformin 1000mg day. Will follow up in 3 months. Orders: Comprehensive metabolic panel; Future Hemoglobin A1c; Future Lipid panel with reflex to direct LDL; Future Sleep related hypoxia 11/18/2021 Overview (07/02/2024): Overnight oximetry showed: Result date: 11/14/2021 1. Lowest oxygen level is 68%. 2. Oxygen spent under 88% is 10 minutes. 3.Consecutive oxygen under 88 is 1.4-minute. 4. Supplemental oxygen is indicated. Diverticulosis 01/14/2019 Postoperative hypothyroidism 05/04/2017 Assessment & Plan (03/16/2025 3:45 PM EDT): Currently on levothyroxine 50 mcg a day. Last TSH 2.25. Stable over the last years. Will continue same dose. GERD (gastroesophageal reflux disease) 3 Fatty liver 04/17/2013 Overview (07/02/2024): Sono 04/08 Alcohol abuse 10/30/2012 Overview (07/02/2024): In remission Lung mass 11/15/2011 Overview (07/02/2024): RML 3/12; Stable since 2001, probable calcified hamartoma Psoriasis 03/14/2010 Renal cyst 04/01/2009 Overview (07/02/2024): Septate 1.6 cm Cervicalgia 11/19/2008 Pain in thoracic spine 11/19/2008 RADHIKA (obstructive sleep apnea) 01/06/2008 Overview (07/02/2024): Dr Douglas; non compliant with CPAP [facility] Home Polysomnogram: Date 11/11/2015; AHI 21, Unclassified apneas 9; Obstructive apneas 48; Central apneas 5; Mixed apneas 1; hypopneas 52; average oxygen saturation 94% (lowest 83% without saturations <88% for 5% or more of study) [facility] Home Polysomnogram: Date 01/03/2018; AHI 9, Unclassified apneas 0; Obstructive apneas 42; Central apneas 1; Mixed apneas 1; hypopneas 23; average oxygen saturation 96% (lowest 86% without saturations <88% for 5% or more of study) [facility] Polysomnogram treatment study. Date 02/06/2018 . SE 69 % SM 90 %; spent 30 % of the study in REM. On CPAP @ 5; RDI 1.3 (AHI 1.2), Central apneas 4; Obstructive apneas 0; Mixed apneas 1; hypopneas 2; RERAs 1; and, average oxygen saturation was 95%. For the entire study, PLMs ~3. - Obstructive Sleep Apnea - mild; mostly obstructive apneas; without sleep related hypoventilation by 2018 home polysomnogram. 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 Last LDL was 103. Currently on Atorvastatin 80 mg a day. Will recheck lipid profile and CMP in 3 months before her next visit. I have instructed the patient on the principles of a low cholesterol diet and the importance of regular exercise. Orders: Comprehensive metabolic panel; Future Hemoglobin A1c; Future Lipid panel with reflex to direct LDL; Future Sarcoidosis 09/29/2005 Overview (07/02/2024): Sees outside manufacturing quality manager Constipation 08/10/2005 Overview (07/02/2024): IMO update Encounters Date Type Department Care Team Description 03/16/2025 2:30 PM EDT Office Visit Adult [address] [phone] Rosa Hinds MD Encounter for general adult medical examination without abnormal findings (Primary Dx); Type 2 diabetes mellitus without complication, without long-term current use of insulin (CMS/HCC V24, CMS/HCC V28); Hyperlipidemia, unspecified hyperlipidemia type; Postoperative hypothyroidism; Advance care planning 03/04/2025 1:00 PM EDT Office Visit Adult [address] [phone] Camilla Younger PA Type 2 diabetes mellitus without complication, without long-term current use of insulin (CMS/HCC V24, CMS/HCC V28) (Primary Dx); Mixed hyperlipidemia; Postoperative hypothyroidism; Overweight (BMI 25.0-29.9) 02/26/2025 1:00 PM EDT Office Visit Orthopedics [address] [phone] Doug Rogers PA Radicular pain of left lower extremity (Primary Dx); Osteoarthritis of spine with radiculopathy, lumbar region 02/24/2025 Telephone Vascular Surgery - [place] [address] [facility] [address] [place] [phone] Adia Madrigal MD 02/24/2025 Telephone Vascular Surgery [facility] [address] [facility] [address] [place] [phone] Adia Madrigal MD 02/19/2025 Telephone Adult Medicine [facility] [address] [place] [phone] Rosa Hinds MD 02/18/2025 Telephone Vascular Surgery [facility] [address] [place] [address] Adia Madrigal MD from Last 3 Months Immunizations Name Administration Dates Next Due DTaP, Unspecified 11/17/2003 Influenza Quadravalent, MDCK , 0.5ml, preservative free (Flucelvax) 6mo and older 11/03/2018 Influenza trivalent, 0.5mL ( Fluad) 65yo and older 07/16/2024,05/17/2023,05/11/2022,06/23,05/04/2017 Influenza trivalent, 0.5mL, preservative free (Fluarix; FluLaval; Fluzone) ages 6mo and older (Afluria) 3 years and older 07/25/2016,08/12/2012,08/11/2010,06/20,08/10/2005 Moderna SARS-CoV-2 COVID-19, mRNA, LNP-S, preservative free 09/14/2021,01/18/2021,12/19/2020 PPD Test 01/14/2007 Pneumococcal conjugate 13 va lent (Prevnar 13, PCV13) 2mo and older 07/30/2017,10/31/2016 Pneumococcal polysaccharide 23 valent (Pneumovax 23) 2yo and older 06/23/2020,04/07/2014 TD, Adsorbed, Preservative Free 11/17/2003 Td Tetanus diptheria (Tdvax) 7yo and older 01/30/2023,08/21/2007 Tdap Tetanus diptheria acell ular pertussis (Boostrix; Adacel) 7yo and older 12/04/2012 Zoster recombinant (Shingrix ) 19yo and older 02/22/2024,11/14/2022 Surgical History Surgery Date Site/Laterality Comments OTHER SURGICAL HISTORY 01/31/08 PROCEDURE: HISTORICAL SUBTOTAL THYROIDECTOMY; COMMENT: [place]; Right; Micropapillary carcinoma ESOPHAGOGASTRODUODENOSCOPY 09/02/09 PROCEDURE: NV ESOPHAGOGASTRODUODENOSCOPY TRANSORAL DIAGNOSTIC; COMMENT: hiatus hernia COLONOSCOPY 03/30 PROCEDURE: HISTORICAL COLONOSCOPY; COMMENT: Jena adler COLONOSCOPY 11/01/09 PROCEDURE: HISTORICAL COLONOSCOPY; COMMENT: normal; repeat in ten years OTHER SURGICAL HISTORY 08/2016 PROCEDURE: HISTORICAL UNSPECIFIED SURGERY; COMMENT: laproscopic hiatal hernia repair - Yoselin fundoplication APPENDECTOMY 07/2017 PROCEDURE: HISTORICAL APPENDECTOMY BREAST BIOPSY 03/12/2014 Right PROCEDURE: BX BREAST; PERC NEEDLE CORE W/IMAG GUID; COMMENT: cellular material consistent with a benign apocrine cyst Medical History Medical History Date Comments Sarcoidosis 09/29/2005 DX:Sarcoidosis 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 DX:Congenital lower limb vessel anomaly Unspecified disorder of thyroid DX:Unspecified disorder of thyroid Renal cyst 04/01/2009 DX:Renal cyst Tobacco abuse 10/20/2011 DX:Tobacco abuse GERD (gastroesophageal reflu x disease) 06/09/2013 DX:GERD (gastroesophageal re flux disease) RADHIKA (obstructive sleep apnea) 01/06/2008 DX :RADHIKA (obstructive sleep apnea); COMMENT: Dr Douglas; non compliant with CPAP History of thyroid cancer 09/09/2008 DX:His tory of thyroid cancer; COMMENT: 3 mm papillary carcinoma; s/p right lobectomy CKD (chronic kidney disease) stage 3, GFR 30-59 ml/min (CMS/HCC V24, CMS/HCC V28) 08/10/2005 DX:CKD (chronic kidney disea se) stage 3, GFR 30-59 ml/min (HCC) Constipation 08/10/2005 DX:Constipation; COMMENT: IMO update Psoriasis 03/14/2010 DX:Psoriasis Postoperative hypothyroidism 05/04/2017 DX: Postoperative hypothyroidism Pain in thoracic spine 11/19/2008 DX:Pain i n thoracic spine Lung mass 11/15/2011 DX:Lung mass; CO MMENT: RML 11/05; Stable since 2001, probable calcified hamartoma Hyperlipidemia 09/29/2005 DX:Hyperlipidemi a History of diverticulitis 05/26/2016 DX:His tory of diverticulitis Fatty liver 04/17/2013 DX:Fatty liver; COMMENT: Sono 04/08 Cervicalgia 11/19/2008 DX:Cervicalgia Alcohol abuse 10/30/2012 DX:Alcohol abuse New onset type 2 diabetes me llitus ([facility] V24, [facility] V28) 01/19/2022 DX:New onset type 2 diabete s mellitus (HCC) Family History Medical History Relation Name Comments No Known Problems Aunt Diabetes Brother 1 Pancreatic cancer Brother 2 Cataracts Father Hypertension Father Other: vaginal cancer Mother Pancreatic cancer Other 1 nephew 1 No Known Problems Other 2 Other: pancreatic cancer Other 3 nep hew 2 Glaucoma Sister 1 Stroke Sister 1 Heart attack Sister 2 Diabetes Sister 3 x 3 Hypertension Sister 4 x 5 Other: lung cancer Sister 5 smoker No Known Problems Uncle Blindness Neg Hx Breast cancer Neg Hx Colon cancer Neg Hx Macular degeneration Neg Hx Ovarian cancer Neg Hx Strabismus Neg Hx Relation Name Status Comments Aunt Brother 1 Brother 2 Father Mother Other 1 Other 2 Other 3 Sister 1 Alive Sister 2 Sister 3 Sister 4 Alive Sister 5 Uncle Social History Tobacco Use Types Packs/Day Years Used Date Smoking Tobacco: Former Cigarettes 0.5 41.9 1 09/27/1978 - 06/27/2021 Passive Smoke Exposure: Past Smokeless Tobacco: Never Tobacco Cessation:Counseling Given: Not Answered Alcohol Use Standard Drinks/Week Comments Yes 0 (1 standard drink = 0.6 oz pur e alcohol) Housing Instability Answer Date Recorde d Are you worried that in the next 2 months you may not have stable housing? No 03/16/2025 Food Access & Nutrition Answer Date Rec orded Do you have access to a vari ety of food including fruits and vegetables? Yes 03/16/2025 Access to Healthcare Answer Date Record ed Within the last 3 months, ho w many times did you visit the emergency department for your medical care? 3 03/16/2025 Health Literacy Answer Date Recorded How often do you need to hav e someone help you when you read instructions, pamphlets, or other written material from your doctor or pharmacy? Sometimes 03/16/2025 Caregiver: How often do you need to have someone help you when you read instructions, pamphlets, or other written material from your doctor or pharmacy? Not on file 03/16/2025 Financial Risk Answer Date Recorded How hard is it for you to pa y for the very basics like food, housing, medical care, and air conditioning / heating? Somewhat hard 03/16/2025 Transportation Answer Date Recorded Has the lack of transportati on kept you from meetings, work, or from getting things needed for daily living? Yes Has the lack of transportati on kept you from medical appointments or from getting medications? Yes 03/16/2025 Social Isolation Answer Date Recorded How often do you feel lonely or isolated from those around you? Sometimes 03/16/2025 Food Risk Answer Date Recorded Within the past 12 months we worried whether our food would run out before we got money to buy more. Never true 03/16/2025 Within the past 12 months th e food we bought just didn't last and we didn't have money to get more. Never true 03/16/2025 Dependent Care Answer Date Recorded Do you need help finding or paying for care for your loved ones. For example, child nutrition director or elderly care for an older adult? No 03/16/2025 Education Answer Date Recorded Do you think completing more education or training, like finishing a GED, going to college, or learning a trade, would be helpful for you? N/A 03/16/2025 Employment and Income Answer Date Recor ded During the last four weeks, have you been actively looking for work? No 03/16/2025 Living Situation Answer Date Recorded What is your living situation? 0 03/16/2025 Comments No Sex and Gender Information Value Date Recorded Sex Assigned at Not on file Legal Sex Female 9:14 AM EST Gender Identity Not on file Sexual Orientation Not on file Obstetrics History Last Filed Vital Signs Vital Sign Reading Time Taken Comments Blood Pressure 123/60 03/16/2025 2:28 PM EDT Pulse 66 03/16/2025 2:28 PM EDT Temperature 36.5 C (97.7 F) 03/16/2025 2:28 PM EDT Respiratory Rate 16 03/16/2025 2:28 PM EDT Oxygen Saturation 97% 03/16/2025 2:28 PM EDT Inhaled Oxygen Concentration - - Weight 73 kg (161 lb) 03/16/2025 2:28 PM EDT Height 160 cm (5' 3 ) 03/16/2025 2:28 PM EDT Body Mass Index 28.52 03/16/2025 2:28 PM EDT Plan of Treatment Upcoming Encounters Date Type Department Care Team (Late st Contact Info) Description 06/16/2025 2:30 PM EDT Office Visit Adult Medicine [facility] [address] [place], [place] [phone] Rosa Hinds MD [address] [place], [place] 10/06/2025 10:30 AM EST Office Visit Pulmonology - [place] [address] [facility] [address] [place] [phone] Ambreen Olivares MD [address] [facility] [address] [place] [address] 01/04/2026 12:45 PM EDT Ancillary Procedure [facility] [address] [facility] [address] [place] [phone] Health Maintenance Due Date Last Done Comments RSV Immunization Adult Patients (1 - 1-dose 75+ series) 2024 COVID-19 Vaccine (5 - Moderna risk 2023- season) 2025 07/16/2024, 09/14/2021, 01/18/2021, Additional history exists Influenza Vaccine (#1) 2025 , 05/17/2023, 05/11/2022, Additional history exists Diabetes: Annual Retina Eye Exam 05/23/2025 05/23/2024 Diabetes: Blood Sugar Control Test (HGBA1C) 09/04/2025 03/04/2025, 10/10/2024, 09/18/2023 Diabetes: Annual Urine Albumin-Creatinine Ratio (uACR) 10/10/2025 10/10/2024, 05/26/2022 Diabetes: Annual Foot Exam 10/10/2025 10/10/2024 Diabetes: Annual GFR (Glomerular Filtration Rate) 10/10/2025 10/10/2024, 09/18/2023 Falls Risk Assessment 03/16/2026 03/16/2025 , 03/04/2025, 03/05/2024 Medicare Annual Wellness Visit 03/16/2026 03/16/2025 Social Influencers of Health Screening 03/16/2026 03/16/2025, 08/05/2024 Osteoporosis Screening (Bone Density Screening) 05/22/2028 05/22/2023, 03/24/2021, 12/14/2016 Cholesterol Screening (Lipid Panel) 10/10/2029 10/10/2024, 09/18/2023 DTaP,Tdap,and Td Vaccines (5 - Td or Tdap) 01/30/2033 01/30/2023, 12/04/2012, 08/21/2007, Additional history exists Colorectal Cancer Screening: Colonoscopy 08/17/2033 08/17/2023 Hepatitis C Screening Completed 01/14/2007 Pneumococcal Vaccine: 50+ Years Completed 06/23/2020, 07/30/2017, 10/31/2016, Additional history exists Breast Cancer Screening Discontinued 01/30/20, 11/29/2022, 11/24/2021, Additional history exists Zoster Vaccines Completed 02/22/2024, 11/14/2022 Depression Screening Completed 03/04/2025, 03/05/20 HIB Vaccines Aged Out No longer eligi ble based on patient's age to complete this topic HPV Vaccines Aged Out No longer eligi ble based on patient's age to complete this topic Hepatitis A Vaccines Discontinued Hepatitis B Vaccines Aged Out No long er eligible based on patient's age to complete this topic IPV Vaccines Aged Out No longer eligi ble based on patient's age to complete this topic Lung Cancer Screening (Low Dose CT) Discontinued MMR Vaccines Aged Out No longer eligi ble based on patient's age to complete this topic Meningococcal ACWY Vaccine Aged Out N o longer eligible based on patient's age to complete this topic Meningococcal B Vaccine Aged Out No l onger eligible based on patient's age to complete this topic RSV Immunization Patients Under 20 months Aged Out No longer eligible based on patient's age to complete this topic Varicella Vaccines Aged Out No longer eligible based on patient's age to complete this topic Procedures Procedure Name Priority Date/Time Associated Diagnosis Comments CREATINE KINASE Routine 03/04/2025 2:40 PM EDT Left thigh pain Chronic pain of right lower extremity HEMOGLOBIN A1C Routine 03/04/2025 2:40 PM EDT Type 2 diabetes mellitus without complication, without long-term current use of insulin ([facility] V24, [facility] V28) MICROALBUMIN CREATININE URINE RATIO Routine 10/10/2024 10:36 AM EST Type 2 diabetes mellitus without complication, without long-term current use of insulin ([facility] V24, [facility] V28) COMPREHENSIVE METABOLIC PANEL Routine 10/10/2024 10:36 AM EST Type 2 diabetes mellitus without complication, without long-term current use of insulin ([facility] V24, [facility] V28) LIPID PANEL WITH REFLEX TO DIRECT LDL Routine 10/10/2024 10:36 AM EST Type 2 diabetes mellitus without complication, without long-term current use of insulin ([facility] V24, [facility] V28) DIABETES EYE EXAM Routine 05/23/2024 DEPRESSION SCREENING Routine 03/05/2024 FALLS RISK ASSESSMENT Routine 03/05/2024 COLONOSCOPY Routine 08/17/2023 DXA BONE DENSITY STUDY 1+ SITS AXIAL SKEL Routine 05/22/2023 2:13 PM EDT Encounter for gynecological examination (general) (routine) without abnormal findings Asymptomatic menopausal state DIAGNOSTIC MAMMOGRAPHY WITH CAD UNILATERAL Routine 01/29/2023 3:03 PM EDT Other abnormal and inconclusive findings on diagnostic imaging of breast HEPATITIS C SCREENING Routine 01/14/2007 from Last 3 Months or Most Recently Relevant to Health Maintenance Results * (ABNORMAL) Hemoglobin A1c (03/04/2025 2:40 PM EDT) Hemoglobin A1C 7.0(H) <6.5 % LAB CHEMISTRY METHOD 03/05/2025 11:[address] [facility] Mean Bld Glu Estim. 154 mg/dL LAB CHEMISTRY METHOD 03/05/2025 11:[address] [facility] Blood Venous blood specimen / Unknown Venipuncture / Unknown 03/04/2025 2:40 PM EDT 03/04/2025 2:40 PM EDT Camilla HINOJOSA LAB BLOOD ORDERABLES Final Resu lt [facility] [address] [place] [address], [place] [phone] * Creatine kinase (03/04/2025 2:40 PM EDT) [facility] Total CK 77 22 - 269 unit/L LAB CHEMISTRY METHOD 03/04/2025 6:[address] [facility] Blood Venous blood specimen / Unknown Venipuncture / Unknown 03/04/2025 2:40 PM EDT 03/04/2025 2:40 PM EDT John Ruelas MD LAB BLOOD ORDERABLES Final Result Performing Organization Address City/[facility]/ZIP Co de Phone Number [facility] [address] [place] [address], [place] [phone] * (ABNORMAL) Lipid panel with reflex to direct LDL (10/10/2024 10:36 AM EST) [facility] Cholesterol 200 0 - 200 mg/dL LAB CHEMISTRY METHOD 10/10/2024 2:[address] [facility] Triglycerides 82 0 - 150 mg/dL LAB CHEMISTRY METHOD 10/10/2024 2:[address] [facility] HDL 81 >=40 mg/dL LAB CHEMISTRY METHOD 10/10/2024 2:[address] [facility] LDL Calculated 103(H) 0 - 100 mg/dL LAB CHEMISTRY METHOD 10/10/2024 2:[address] [facility] VLDL Cholesterol Cornel 16.4 mg/dL LAB CHEMISTRY METHOD 10/10/2024 2:[address] [facility] Non HDL Chol. (LDL+VLDL) 119 <145 mg/dL LAB CHEMISTRY METHOD 10/10/2024 2:[address] [facility] Chol/HDL Ratio 2.5 0.0 - 4.4 LAB CHEMISTRY METHOD 10/10/2024 2:[address] [facility] Blood Venous blood specimen / Unknown Venipuncture / Unknown 10/10/2024 10:36 AM EST 10/10/2024 10:36 AM EST us Nikky Sidhu PA LAB BLOOD ORDERABLES Final Resul t Performing Organization Address [facility]/ZIP Co de Phone Number [facility] [address] [place] [address], [place] [phone] * Microalbumin creatinine urine ratio (10/10/2024 10:36 AM EST) Creatinine, Urine 137.0 mg/dL LAB CHEMISTRY METHOD 10/10/2024 1:18 PM [facility] Microalb, Ur 11.8 0.0 - 29.0 mg/L LAB CHEMISTRY METHOD 10/10/2024 1:18 PM [facility] Microalb/Creat Ratio 9 <30 mg/g creat LAB CHEMISTRY METHOD 10/10/2024 1:[address] [facility] Urine Urine specimen obtained by clean catch procedure / Unknown Non-blood Collection / Unknown 10/10/2024 10:36 AM EST 10/10/2024 10:36 AM EST us Nikky Sidhu PA LAB URINE ORDERABLES Final Resul t Performing Organization Address [facility]/ZIP Co de Phone Number [facility] [address] [place] [address], [place] [phone] * (ABNORMAL) Comprehensive metabolic panel (10/10/2024 10:36 AM EST) [facility] Sodium 140 133 - 145 mmol/L LAB CHEMISTRY METHOD 10/10/2024 2:51 PM [facility] Potassium 3.8 3.5 - 5.5 mmol/L LAB CHEMISTRY METHOD 10/10/2024 2:51 PM [facility] Chloride 111(H) 96 - 110 mmol/L LAB CHEMISTRY METHOD 10/10/2024 2:51 PM [facility] CO2 26 21 - 32 mmol/L LAB CHEMISTRY METHOD 10/10/2024 2:51 PM [facility] Anion Gap 3 3 - 11 LAB CHEMISTRY METHOD 10/10/2024 2:51 PM [facility] Glucose 112(H) 70 - 100 mg/dL LAB CHEMISTRY METHOD 10/10/2024 2:51 PM [facility] BUN 19 5 - 25 mg/dL LAB CHEMISTRY METHOD 10/10/2024 2:51 PM [facility] Creatinine 0.92 0.50 - 1.10 mg/dL LAB CHEMISTRY METHOD 10/10/2024 2:51 PM [facility] eGFR 65 >=60 mL/min/1. 73m2 LAB CHEMISTRY METHOD 10/10/2024 2:51 PM [facility] Comment:Calculation based on the Chronic Kidney Disease Epidemiology Collaboration (CKD-EPI) equation refit without adjustment for race. BUN/Creatinine Ratio 20.7 LAB CHEMISTRY METHOD 10/10/2024 2:51 PM [facility] Calcium 9.3 8.5 - 10.5 mg/dL LAB CHEMISTRY METHOD 10/10/2024 2:51 PM [facility] AST (SGOT) 21 10 - 42 unit/L LAB CHEMISTRY METHOD 10/10/2024 2:51 PM [facility] ALT (SGPT) 28 10 - 60 unit/L LAB CHEMISTRY METHOD 10/10/2024 2:51 PM [facility] Alkaline Phosphatase 96 42 - 121 unit/L LAB CHEMISTRY METHOD 10/10/2024 2:[address] [facility] Total Protein 7.0 6.0 - 8.0 g/dL LAB CHEMISTRY METHOD 10/10/2024 2:[address] [facility] Albumin 3.9 3.2 - 5.0 g/dL LAB CHEMISTRY METHOD 10/10/2024 2:[address] [facility] Total Bilirubin 0.7 0.0 - 1.4 mg/dL LAB CHEMISTRY METHOD 10/10/2024 2:[address] [facility] Blood Venous blood specimen / Unknown Venipuncture / Unknown 10/10/2024 10:36 AM EST 10/10/2024 10:36 AM EST Nikky Nahum [facility] BLOOD ORDERABLES Final Resul t [facility] [address] [place] [address], [place] [phone] * Diabetes Eye Exam (05/23/2024) [facility] Diabetes: Annual Retina Eye Exam Abstracted [facility] Provider HEALTH MAINTENANCE Final Result * Falls Risk Assessment (03/05/2024) [facility] Falls Risk Assessment Abstracted [facility] Provider HEALTH MAINTENANCE Final Result * Depression Screening (03/05/2024) [facility] Depression Screening Abstracted [facility] Provider HEALTH MAINTENANCE Final Result * Colonoscopy (08/17/2023) [facility] Colonoscopy Normal, Abstracted Anatomical Region Laterality Modality Other [facility] Provider HEALTH MAINTENANCE Final Result * DXA BONE DENSITY STUDY 1+ SITS AXIAL SKEL (05/22/2023 2:13 PM EDT) Anatomical Region Laterality Modality Bone Densitometr y 02/08/2023 11:4 1 AM EDT Narrative 05/23/2023 7:50 PM EDT STUDY: DUAL ENERGY X-RAY ABSORPTIOMETRY / DXA REASON FOR EXAM: Female, 72 years old. Menopausal/postmenopausal disorder TECHNIQUE: Bone Mineral Density (BMD) measurements of the lumbar spine and left hip were obtained. COMPARISON: March 24, 2021 FINDINGS: L1-L4 T score: -1.5. This corresponds to osteopenia. This represents a -0.2 % decrease in bone density compared with prior exam from March 24, 2021. Left femoral neck T score: -1.0. This corresponds to osteopenia. Left total hip T score: -0.4. This corresponds to Normal bone density. This represents a 5.5 % increase in bone density compared with prior exam from March 24, 2021. FRAX score: 10 year risk of major osteoporotic fracture Major 5.3 %, 10 year risk of hip fracture Hip 0.7 % IMPRESSION: IMPRESSION: Osteopenia Reference Information: The T-score is the number of standard deviations above or below the standard which is normal for young adults at their peak bone mineral density. The World Health Organization (WHO) interprets the T-scores as follows: Above -1 Normal bone density Between -1 and -2.5 Osteopenia Equal to / or below -2.5 Osteoporosis As a practical clinical guideline, osteopenia may be graded as follows: Mild -1 through -1.5 Moderate -1.6 through -2.0 Severe -2.1 through -2.4 References: 1. NIH Osteoporosis and Related Bone Diseases http://www.osteo.org 2. International Society for Clinical Densitometry http://www.iscd.org 3. National Osteoporosis Foundation http://www.nof.org Procedure Note Toshia Garrett MD - 02/06/2024 STUDY: DUAL ENERGY X-RAY ABSORPTIOMETRY / DXA REASON FOR EXAM: Female, 72 years old. Menopausal/postmenopausaldisorder TECHNIQUE: Bone Mineral Density (BMD) measurements of the lumbar spineand left hip were obtained. COMPARISON: March 24, 2021 FINDINGS: L1-L4 T score: -1.5. This corresponds to osteopenia. This represents a -0.2 % decrease in bone density compared with prior examfrom March 24, 2021. Left femoral neck T score: -1.0. This corresponds to osteopenia. Left total hip T score: -0.4. This corresponds to Normal bone density. This represents a 5.5 % increase in bone density compared with prior examfrom March 24, 2021. FRAX score: 10 year risk of major osteoporotic fracture Major 5.3 %, 10year risk of hip fracture Hip 0.7 % IMPRESSION: IMPRESSION: Osteopenia Reference Information: The T-score is the number of standard deviations above or below thestandard which is normal for young adults at their peak bone mineral density. The World HealthOrganization (WHO) interprets the T-scores as follows: Above -1 Normal bone density Between -1 and -2.5 Osteopenia Equal to / or below -2.5 Osteoporosis As a practical clinical guideline, osteopenia may be graded as follows: Mild -1 through -1.5 Moderate -1.6 through -2.0 Severe -2.1 through -2.4 References: 1. NIH Osteoporosis and Related Bone Diseases http://www.osteo.org 2. International Society for Clinical Densitometry http://www.iscd.org 3. National Osteoporosis Foundation http://www.nof.org [facility] DXA PROCEDURES Final Result * DIAGNOSTIC MAMMOGRAPHY WITH CAD UNILATERAL (01/29/2023 3:03 PM EDT) Anatomical Region Laterality Modality Mammography 11/30/2022 9:26 AM EDT Narrative 01/29/2023 3:16 PM EDT This is a summary report. The complete report is available in the patient's medical record. If you cannot access the medical record, please contact the sending organization for a detailed fax or copy. Exam: Unilateral right digital diagnostic mammogram. History: Call back Findings: Patient is recalled from a screening mammogram performed 11/29/2022 for additional imaging on the right. 90 ML and spot compression MLO views were performed with tomosynthesis. The asymmetry in the retroareolar breast on the MLO view does not persist on the additional views. No mass or architectural distortion is apparent. Parenchymal pattern is similar to prior exams. Impression: No suspicious finding on callback imaging. Routine annual screening mammography recommended. BI-RADS 1-negative Procedure Note Gisel Warren MD - 10/01/2023 This is a summary report. The complete report is available in thepatient's medical record. If you cannot access the medical record, pleasecontact the sending organization for a detailed fax or copy. Exam: Unilateral right digital diagnostic mammogram. History: Call back Findings: Patient is recalled from a screening mammogram performed11/29/2022 for additional imaging on the right. 90 ML and spot compression MLO views were performed with tomosynthesis.The asymmetry in the retroareolar breast on the MLO view does not persiston the additional views. No mass or architectural distortion is apparent.Parenchymal pattern is similar to prior exams. Impression: No suspicious finding on callback imaging. Routine annualscreening mammography recommended. BI-RADS 1-negative Rosa Hinds MD IMG BI PROCEDURES Final Result * Hepatitis C Screening (01/14/2007) Hepatitis C Screening Abstracted Historical Provider HEALTH MAINTENANCE Final Result from Last 3 Months or Most Recently Relevant to Health Maintenance Insurance MEDICAID - [place] [employer] MEDICARE Care Teams Tool Adjuster Relationship Specialty Start Date End Date Rosa Hidns MD [address] [place] [phone] PCP - General Internal Medicine 08/21/24
== END 2025-05-21 10:40 | disposition home or self-care (01) ==
LOC: HO.HGI 09:55
PROVIDERS: PCP Internal Medicine; Visit Provider Internal Medicine Gastroenterology
DX: R14.0 Abdominal distension (gaseous) (principal); R13.14 Dysphagia, pharyngoesophageal phase; R15.9 Full incontinence of feces; K74.60 Unspecified cirrhosis of liver; K21.9 Gastro-esophageal reflux disease without esophagitis; K76.0 Fatty (change of) liver, not elsewhere classified; Z86.0100 Personal history of colon polyps, unspecified; K44.9 Diaphragmatic hernia without obstruction or gangrene
CPT/HCPCS: 99499

== ENCOUNTER 2025-07-27 10:29 | Outpatient (AMB) | payer OTHER, SELFPAY ==
--- NOTE | 2025-07-27 10:33 | MHC.OFFVISWM ---
VS Expanded 07/27/25 10:48 BP 145/63 H Blood Pressure Location Rt brachial Blood Pressure Position Sitting Pulse 87 Pulse Source Pulse Oximeter Temp 97.2 F Temperature Source Temporal Artery Scan Pulse Oximetry 97 Oxygen Delivery Method Room Air Height 5 ft 3 in Weight 157 lb BMI 27.8 Body Fat % 40.4 Body Fat Mass 63.4 Fat Free Mass 93.4 Visceral Fat Rating 11.0 Body Water % 41.9 Body Water Mass 65.6 Muscle Mass/Score 88.6 Basal Metabolic Rate/Score 1,288 Intake Visit Reasons: OV Paraesophageal Hernia - Dr. Che *BLOCK SORTER* Counter Sales Representative Required: Yes Counter Sales Representative Services: Counter Sales Representative Present Information Interpreted: clinical only Allergies No Known Allergies (No Known Allergies*) Allergy (Verified 07/27/25 11:02) Medication List - Last Reconciled 07/27/25 by Refugio Abrams MD albuterol sulfate 90 mcg/actuation 2 puffs inhalation Q6H PRN aspirin 81 mg PO DAILY atorvastatin 40 mg PO DAILY calcium carbonate-vitamin D3 600 mg-10 mcg (400 unit) 1 tab PO BID dicyclomine 20 mg PO BID 90 days levothyroxine 50 mcg PO DAILY lisinopril 5 mg PO DAILY melatonin 3 mg PO BEDTIME PRN metformin 500 mg PO DAILY omeprazole 20 mg PO BID 60 days HPI Comments Details: Has some GERD but recently has improved when she was switched to Omeprazole. Denies any vomiting Tests reviewed: UGI 2019: recurrent small HH with GERD EGD: 08/18: 4cm fixed HH, no esophagitis CT abd/pelvis: 2021: moderate size sliding HH with herniated Yoselin wrap UGI 2024: moderate size hernia with some GERD and esophageal dysmotility PFSH Medical History (Updated 07/27/25 @ 11:33 by Refugio Abrams MD) Hiatal hernia with gastroesophageal reflux Insomnia Type 2 diabetes mellitus without complications Thoracic spine pain Neck pain Hepatic steatosis History of ETOH abuse Mass of upper lobe of right lung Hiatal hernia RADHIKA (obstructive sleep apnea) CKD (chronic kidney disease) HLD (hyperlipidemia) Hypothyroidism Hepatic steatosis GERD (gastroesophageal reflux disease) Abdominal bloating Dysphagia Sarcoidosis Thyroid cancer Surgical History Hx of partial thyroidectomy History of repair of hiatal hernia Hx of colonoscopy Hx of esophagogastroduodenoscopy Social History (Updated 07/27/25 @ 10:45 by Elina Boland CMA) Household Members: Family Are you a primary caregivers homecare to a significant other at home: Yes (3 year old great-grand child, daughter to help post-op) Do you presently have visiting nurse or other home services: No Alcohol intake: current Alcohol intake frequency: holidays/special occasions only Patient Tobacco Use Status: Former Tobacco user Tobacco use type: Cigarette Physical Exam Vital Signs: Last Vital Signs Temp 97.2 F 07/27/25 10:48 Pulse 87 07/27/25 10:48 BP 145/63 H 07/27/25 10:48 Pulse Ox 97 07/27/25 10:48 Oxygen Delivery Method Room Air 07/27/25 10:48 BMI result Body Mass Index 27.8 GI Inspection: Yes normal to inspection (android body habitus), Yes incision (well healed) and Yes obesity Palpation (GI): Soft to palpation Extrem Right lower extremity: normal to inspection Left lower extremity: normal to inspection Assessment & Plan Assessment & Plan (1) Hiatal hernia with gastroesophageal reflux: Code(s): K44.9 - Diaphragmatic hernia without obstruction or gangrene; K21.9 - Gastro-esophageal reflux disease without esophagitis Category: Medical Plan: The patient has a recurrent diaphragmatic (sliding) hernia. She had a previous repair with Yoselin fundoplication by Dr. Pedersen about 5 years ago at [facility]. Had an UGI in 2019 after that repair for dysphagia which shows a hiatal hernia. That means that the hernia was never repaired properly. A redo-repair would require to take down the Yoselin wrap and repair the hernia. This is a by far more complex surgery than the first one. I do not think she has a paraesophageal hernia as described in the recent UGI because the 2 lumens that are seen in the mediastinum represent the esophagus and the wrap and is not a true paraesophageal hernia. Is more so a sliding hernia with the Yoselin wrap being in the mediastinum. I also don't think the hernia will increase in size due to extensive scarring and sutures from the previous operation. As I explained to the patient, the repair should be done only if her quality of life is significantly affected by this hernia or she experiences worsening symptoms of vomiting and regurgitation. The patient is content with her present situation and does not wish to proceed with the repair at this time. I do agree with this assessment and I advised her to call my office if symptoms worsen or new symptoms appear. 2. I also advised her to speak with her PCP and consider using Mounjaro for her diabetes and help her with some weight loss that may improve her GERD and prevent the hernia to grow larger.
[2025-07-27 10:48] VITALS: BP 145/63; PULSE 87; TEMP 36.2; O2SAT 97; BMI 27.8
--- OUTSIDE RECORDS SUMMARY | 2025-07-27 13:16 | XMS_ITS | Clinical Summary ---
Author Organization [facility] Address [address] [place] [address] Phone Care Team Providers Care Vacuum Caster Name Role Phone Rosa Hinds MD Primary Care Prov ider Allergies No known active allergies Medications cetirizine (ZyrTEC) 10 mg tablet Take 1 tablet (10 mg total) by mouth 1 (one) time each day. 4 Active melatonin 3 mg tablet TAKE 1 TABLET BY MOUTH AT BEDTIME NEEDED (INSOMNIA). 4 Active clobetasoL (TEMOVATE) 0.05 % cream 4 Active blood sugar diagnostic (OneTouch Verio test strips) test strip Use to test blood sugar once daily 2 Active lancets 33 gauge misc Apply 1 Each topically daily. 2 Active blood-glucose meter kit Apply 1 Each topically daily. 2 Active albuterol HFA (PROAIR HFA ; PROVENTIL HFA ; VENTOLIN HFA) 90 mcg/actuation inhalerIndicati ons:Sarcoidosis Inhale 2 puffs by mouth every 6 (six) hours if needed for wheezing or shortness of breath. 1 each 4 08/13/20 25 Active acetaminophen (Tylenol 8 Hour) 650 mg 8 hr tablet Take 1 tablet (650 mg total) by mouth every 8 (eight) hours if needed for mild pain or moderate pain. Do not crush, chew, or split. 90 tablet 1 5 Active atorvastatin (LIPITOR) 80 mg tablet TAKE 1 TABLET BY MOUTH DAILY 30 tablet 10 5 Active cyclobenzaprine (FLEXERIL) 10 mg tablet Take 1 tablet (10 mg total) by mouth at bedtime as needed for muscle spasms. 30 tablet 5 Active metFORMIN XR (GLUCOPHAGE-XR) 500 mg 24 hr tablet Take 1 tablet (500 mg total) by mouth 2 (two) times a day with meals. 180 tablet 5 Active lisinopriL (PRINIVIL,ZESTR IL) 2.5 mg tablet Take 1 tablet (2.5 mg total) by mouth 1 (one) time each day. 90 each 3 5 03/16/20 26 Active diclofenac (VOLTAREN) 1 % topical gel APPLY 4 GRAMS TOPICALLY 2 TIMES DAILY NEEDED (PAIN). 100 g 3 5 Active levothyroxine (SYNTHROID, LEVOTHROID) 50 mcg tablet TAKE 1 TABLET (50 MCG TOTAL) BY MOUTH 1 (ONE) TIME EACH DAY. 30 tablet 4 5 Active aspirin 81 mg EC tablet TAKE 1 TABLET BY MOUTH EVERY DAY 90 tablet 5 Active omeprazole (PriLOSEC) [address] capsule 5 Active calcium carbonate-vitam in D 600 mg-10 mcg (400 unit) per tablet Take 1 tablet by mouth 2 (two) times a day. 60 tablet 3 5 Active Active Problems Problem Noted Date Diagnosed Date [...] to her PCP for further evaluation of non-vessel scrapper helper causes of pain. Type II diabetes mellitus (CMS/HCC V24, CMS/HCC V28) 01/19/2022 Assessment & Plan (06/16/2025 3:01 PM EDT): Good control of diabetes.A1C: 7.0 Patient will continue with yearly Podiatric and Ophthomologic evaluations. Will continue Angiotensin Converting Enzyme Inhibitor for renal protection, Lisinopril 2.5mg day, Metformin 1000mg day. Will follow up in 4 months. Orders: Ambulatory referral to Podiatry; Future Assessment & Plan (03/16/2025 3:45 PM EDT): [...] 01/14/2019 Postoperative hypothyroidism 05/04/2017 Assessment & Plan (06/16/2025 3:01 PM EDT): Currently on levothyroxine 50 mcg a day. Last TSH 2.25. Stable over the last years. Will continue same dose. Assessment & Plan (03/16/2025 3:45 PM EDT): Currently on levothyroxine 50 mcg a day. Last TSH 2.25. Stable over the last years. Will continue same dose. GERD (gastroesophageal reflux disease) 3 Fatty liver 04/17/2013 Overview (07/02/2024): Sono 04/08 Alcohol abuse 10/30/2012 Overview (07/02/2024): In remission Lung mass 11/15/2011 Overview (07/02/2024): RML 11/05; Stable since 2001, probable calcified hamartoma Psoriasis 03/14/2010 Renal cyst 04/01/2009 Overview (07/02/2024): Septate 1.6 cm Cervicalgia 11/19/2008 Pain in thoracic spine 11/19/2008 RADHIKA (obstructive sleep apnea) 01/06/2008 Overview (07/02/2024): Dr Douglas; non compliant with CPAP [facility] Home Polysomnogram: Date 11/11/2015; AHI 21, Unclassified apneas 9; Obstructive apneas 48; Central apneas 5; Mixed apneas 1; hypopneas 52; average oxygen saturation 94% (lowest 83% without saturations <88% for 5% or more of study) [facility] Home Polysomnogram: Date 01/03/2018; AHI 9, Unclassified apneas 0; Obstructive apneas 42; Central apneas 1; Mixed apneas 1; hypopneas 23; average oxygen saturation 96% (lowest 86% without saturations <88% for 5% or more of study) [facility] Polysomnogram treatment study. Date 02/06/2018 . SE [...] obstructive apneas; without sleep related hypoventilation by 2017 home polysomnogram. 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 Last LDL was 103. Currently on Atorvastatin 80 mg a day. I have instructed the patient on the principles of a low cholesterol diet and the importance of regular exercise. Pending to recheck lipid panel before next visit. 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 Constipation 08/10/2005 Overview (07/02/2024): IMO update Encounters Date Type Department Care Team Description 06/16/2025 2:30 PM EDT Office Visit Adult Medicine [address] [phone] Rosa Calderon MD Type 2 diabetes mellitus without complication, without long-term current use of insulin ([facility] V24, [facility] V28) (Primary Dx); Hyperlipidemia, unspecified hyperlipidemia type; Postoperative hypothyroidism; Need for prophylactic vaccination and inoculation against influenza 06/08/2025 Telephone Adult Medicine [address] [phone] Rosa Calderon MD from Last 3 Months Immunizations Immunization Administration Dates Next Due DTaP, Unspecified 11/17/2003 Influenza Quadravalent, MDCK , 0.5ml, preservative free (Flucelvax) 6mo and older 11/03/2018 Influenza trivalent, 0.5mL ( Fluad) 65yo and older 06/16/2025,07/16/2024,05/17/2023,05/11,06/23/2020,05/04/2017 Influenza trivalent, 0.5mL, preservative free (Fluarix; FluLaval; [...] HISTORY 01/31/08 PROCEDURE: HISTORICAL SUBTOTAL THYROIDECTOMY; COMMENT: Real; Right; Micropapillary carcinoma ESOPHAGOGASTRODUODENOSCOPY 09/02/09 PROCEDURE: ND ESOPHAGOGASTRODUODENOSCOPY TRANSORAL DIAGNOSTIC; COMMENT: hiatus hernia COLONOSCOPY [...] kidney disease) stage 3, GFR 30-59 ml/min ([facility]/HCC V24, [facility]/HCC V28) 08/10/2005 DX:CKD (chronic kidney disea se) stage 3, GFR 30-59 ml/min ([facility]) Constipation 08/10/2005 DX:Constipation; COMMENT: IMO update Psoriasis [...] New onset type 2 diabetes me llitus ([facility]/HCC V24, CMS/HCC V28) 01/19/2022 DX:New onset type 2 diabete [...] your loved ones. For example, child care worker or elderly care for an older adult? [...] Date Recorded What is your living situation? Unrecognized valu e 03/16/2025 Comments No Sex and Gender Information Value Date Recorded Sex Assigned at Not on file Legal Sex Female 9:14 AM EST Gender Identity Not on file Sexual Orientation Not on file Obstetrics History Last Filed Vital Signs Vital Sign Reading Time Taken Comments Blood Pressure 94/50 06/16/2025 2:24 PM EDT Pulse 70 06/16/2025 2:24 PM EDT Temperature 36 C (96.8 F) 06/16/2025 2:24 PM EDT Respiratory Rate 14 06/16/2025 2:24 PM EDT Oxygen Saturation 97% 06/16/2025 2:24 PM EDT Inhaled Oxygen Concentration - - Weight 72.2 kg (159 lb 3.2 oz) 06/16/2025 2:24 P M EDT Height 160 cm (5' 3 ) 06/16/2025 2:24 PM EDT Body Mass Index 28.2 06/16/2025 2:24 PM EDT Plan of Treatment Upcoming Encounters Date Type Department Care Team (Late st Contact Info) Description 09/15/2025 10:00 AM EST Office Visit Orthopedic Surgery - [place] [address] [facility] [address] [place] [phone] Oscar Rascon DPM 175 [facility] [address] [place] [address] 10/06/2025 10:30 AM EST Office Visit Pulmonology - [place] [address] [facility] [address] [place] [phone] Ambreen Olivares MD [address] [place] [phone] 10/20/2025 10:00 AM EST Office Visit Adult Medicine [address] [phone] Rosa Hinds [facility] [place] 01/04/2026 12:45 PM EDT Ancillary Procedure [facility] [address] Oscar [address] [place] [phone] Health Maintenance Due Date Last Done Comments RSV Immunization Adult Patients (1 - 1-dose 75+ series) 2024 COVID-19 Vaccine ( season) 2025 07/16/2024, 09/14/2021, 01/18/2021, Additional history exists Diabetes: Annual Retina Eye [...] 02/22/2024, 11/14/2022 Depression Screening Completed 03/04/2025, 03/05/20 24 Influenza Vaccine Completed 06/16/2025, , 05/17/2023, Additional history exists HIB Vaccines Aged Out No longer eligi [...] Procedure Name Priority Date/Time Associated Diagnosis Comments EXTERNAL VASCULAR ULTRASOUND 06/16/2025 EXTERNAL VASCULAR ULTRASOUND 05/22/2025 HEMOGLOBIN A1C Routine 03/04/2025 2:40 PM EDT Type 2 diabetes mellitus without complication, without long-term current use of insulin ([facility] V24, CMS/[facility] V28) MICROALBUMIN CREATININE URINE RATIO Routine 10/10/2024 10:36 AM EST Type 2 diabetes mellitus without complication, without long-term current use of insulin ([facility] V24, CMS/[facility] V28) COMPREHENSIVE METABOLIC PANEL Routine 10/10/2024 10:36 AM EST Type 2 diabetes mellitus without complication, without long-term current use of insulin ([facility] V24, CMS/[facility] V28) LIPID PANEL WITH REFLEX TO DIRECT LDL Routine 10/10/2024 10:36 AM EST Type 2 diabetes mellitus without complication, without long-term current use of insulin ([facility] V24, [facility] V28) DIABETES EYE EXAM Routine 05/23/2024 DEPRESSION [...] Recently Relevant to Health Maintenance Results * External Vascular Ultrasound (06/16/2025) Only the most recent of2 resultswithin the time period is included. Anatomical Region Laterality Modality Ultrasound Provider [place] On[facility] CV VASCULAR PROCEDURES F inal Result * (ABNORMAL) Hemoglobin A1c (03/04/2025 2:40 PM EDT) Hemoglobin A1C 7.0(H) <6.5 % LAB CHEMISTRY METHOD 03/05/2025 11:28 AM EDT [facility] Mean Bld Glu Estim. 154 mg/dL LAB CHEMISTRY METHOD 03/05/2025 11:28 AM EDT [facility] Blood Venous blood specimen / Unknown Venipuncture / Unknown 03/04/2025 2:40 PM EDT 03/04/2025 2:40 PM EDT us Camilla HINOJOSA LAB BLOOD ORDERABLES Final Resu lt [facility] [address] [place] [address], [place] [phone] * (ABNORMAL) Lipid panel with reflex to direct LDL (10/10/2024 10:36 AM EST) Cholesterol 200 0 - 200 mg/dL LAB CHEMISTRY METHOD 10/10/2024 2:53 PM EST [facility] Triglycerides 82 0 - 150 mg/dL LAB CHEMISTRY METHOD 10/10/2024 2:53 PM EST [facility] HDL 81 >=40 mg/dL LAB CHEMISTRY METHOD 10/10/2024 2:53 PM EST [facility] LDL Calculated 103(H) 0 - 100 mg/dL LAB CHEMISTRY METHOD 10/10/2024 2:53 PM EST [facility] VLDL Cholesterol Cornel 16.4 mg/dL LAB CHEMISTRY METHOD 10/10/2024 2:53 PM EST [facility] Non HDL Chol. (LDL+VLDL) 119 <145 mg/dL LAB CHEMISTRY METHOD 10/10/2024 2:53 PM EST [facility] Chol/HDL Ratio 2.5 0.0 - 4.4 LAB CHEMISTRY METHOD 10/10/2024 2:53 PM EST [facility] Blood Venous blood specimen / Unknown Venipuncture / Unknown 10/10/2024 10:36 AM EST 10/10/2024 10:36 AM EST us Nikky HINOJOSA LAB BLOOD ORDERABLES Final Resul t [facility] [address] [place] [address], [place] [phone] * Microalbumin creatinine urine ratio (10/10/2024 10:36 AM EST) Creatinine, Urine 137.0 mg/dL LAB CHEMISTRY METHOD 10/10/2024 1:18 PM [facility] Microalb, Ur 11.8 0.0 - 29.0 mg/L LAB CHEMISTRY METHOD 10/10/2024 1:18 PM [facility] Microalb/Creat Ratio 9 <30 mg/g creat LAB CHEMISTRY METHOD 10/10/2024 1:18 PM [facility] Urine Urine specimen obtained by clean catch procedure / Unknown Non-blood Collection / Unknown 10/10/2024 10:36 AM EST 10/10/2024 10:36 AM EST us Nikky Nahum HINOJOSA LAB URINE ORDERABLES Final Resul t [facility] [address] [place] [address], [place] [phone] * (ABNORMAL) Comprehensive metabolic panel (10/10/2024 10:36 AM EST) Sodium 140 133 - 145 mmol/L LAB CHEMISTRY METHOD 10/10/2024 2:51 PM [facility] Potassium 3.8 3.5 - 5.5 mmol/L LAB CHEMISTRY METHOD 10/10/2024 2:51 PM [facility] Chloride 111(H) 96 - 110 mmol/L LAB CHEMISTRY METHOD 10/10/2024 2:51 PM [facility] CO2 26 21 - 32 mmol/L LAB CHEMISTRY METHOD 10/10/2024 2:51 PM [facility] Anion Gap 3 3 - 11 LAB CHEMISTRY METHOD 10/10/2024 2:51 PM [facility] Glucose 112(H) 70 - 100 mg/dL LAB CHEMISTRY METHOD 10/10/2024 2:51 PM [facility] BUN 19 5 - 25 mg/dL LAB CHEMISTRY METHOD 10/10/2024 2:51 PM [facility] Creatinine 0.92 0.50 - 1.10 mg/dL LAB CHEMISTRY METHOD 10/10/2024 2:51 PM [facility] eGFR 65 >=60 mL/min/1. 73m2 LAB CHEMISTRY METHOD 10/10/2024 2:51 PM [facility] Comment:Calculation based on the Chronic Kidney Disease Epidemiology Collaboration (CKD-EPI) equation refit without adjustment for race. BUN/Creatinine Ratio 20.7 LAB CHEMISTRY METHOD 10/10/2024 2:51 PM [facility] Calcium 9.3 8.5 - 10.5 mg/dL LAB CHEMISTRY METHOD 10/10/2024 2:51 PM [facility] AST (SGOT) 21 10 - 42 unit/L LAB CHEMISTRY METHOD 10/10/2024 2:51 PM [facility] ALT (SGPT) 28 10 - 60 unit/L LAB CHEMISTRY METHOD 10/10/2024 2:51 PM [facility] Alkaline Phosphatase 96 42 - 121 unit/L LAB CHEMISTRY METHOD 10/10/2024 2:51 PM [facility] Total Protein 7.0 6.0 - 8.0 g/dL LAB CHEMISTRY METHOD 10/10/2024 2:51 PM [facility] Albumin 3.9 3.2 - 5.0 g/dL LAB CHEMISTRY METHOD 10/10/2024 2:51 PM [facility] Total Bilirubin 0.7 0.0 - 1.4 mg/dL LAB CHEMISTRY METHOD 10/10/2024 2:51 PM [facility] Blood Venous blood specimen / Unknown Venipuncture / Unknown 10/10/2024 10:36 AM EST 10/10/2024 10:36 AM EST us Nikky Nahum HINOJOSA LAB BLOOD ORDERABLES Final Resul t [facility] [address] [place] [address], [place] [phone] * Diabetes Eye Exam (05/23/2024) [facility] Diabetes: Annual Retina Eye Exam Abstracted [facility] Provider HEALTH MAINTENANCE Final Result * Falls Risk Assessment (03/05/2024) [facility] Falls Risk Assessment Abstracted [facility] HEALTH MAINTENANCE Final Result * Depression Screening (03/05/2024) [facility] Depression Screening Abstracted [facility] HEALTH MAINTENANCE Final Result * Colonoscopy (08/17/2023) [facility] Colonoscopy Normal, Abstracted Anatomical Region Laterality Modality Other [facility] Provider HEALTH MAINTENANCE Final Result * DXA [...] [email or web address] Procedure Note Toshia Garrett MD - 10/02/2023 STUDY: DUAL ENERGY X-RAY ABSORPTIOMETRY / DXA [...] [email or web address] 3. National Osteoporosis Foundation [email or web address] Shanique Mendoza [facility] IM DXA PROCEDURES Final Result * DIAGNOSTIC MAMMOGRAPHY [...] Most Recently Relevant to Health Maintenance Insurance [employer] MEDICARE [place]ICAID [place] Care Teams Vacuum Caster Relationship Specialty Start Date End Date Rosa Hinds MD [address] [place] [phone] PCP - General Internal Medicine 08/21/24
== END 2025-07-27 11:49 | disposition home or self-care (01) ==
LOC: HO.HBS 10:29
PROVIDERS: PCP Internal Medicine; Visit Provider Surgery
DX: K44.9 Diaphragmatic hernia without obstruction or gangrene (principal); K21.9 Gastro-esophageal reflux disease without esophagitis
CPT/HCPCS: 99204

== ENCOUNTER → 2025-07-27 10:29 | Outpatient (BNVA) | payer OTHER, SELFPAY | PROVIDERS: PCP Internal Medicine; Visit Provider Surgery | DX: K44.9 Diaphragmatic hernia without obstruction or gangrene (principal); K21.9 Gastro-esophageal reflux disease without esophagitis; Z98.890 Other specified postprocedural states | CPT/HCPCS: 99202 ==